=== PATIENT | female | born 1945 | race Caucasian/White ===

== ENCOUNTER 2020-02-08 13:08 | Inpatient (IN) | payer MEDICARE, OTHER, SELFPAY ==
[2020-02-08] VITALS (8 sets, daily range): BP systolic 121–152; BP diastolic 37–58; PULSE 62–72; RESP 13–18; TEMP 36.5–36.8; O2SAT 97–100; BMI 26.6
--- NOTE | ~2020-02-08 | US_ITS ---
EXAMINATION: US pelvic complete EXAM DATE: 02/08/2020 17:42 INDICATION: Vaginal bleeding. Postmenopausal. TECHNIQUE: Pelvic transabdominal and transvaginal sonogram was performed. There are multiple graysca le and Doppler images available for interpretation. There is no prior study for comparison. FINDINGS: Uterus measures 7.4 x 4.2 x 4.9 cm, possibly with 3 cm fibroid. Endometrial stripe measur es 5 mm, within normal limits. There is no free pelvic fluid. Right adnexa: The ovary is not identified. There is no adnexal mass. Left adnexa: The ovary is not identified. There is no adnexal mass. IMPRESSION: 1. Small heterogeneous myometrial region, possible 3 cm fibroid. Reviewed, dictated and finalized at location A.
[2020-02-08 13:46] LABS: Basophils Percent Auto 0.8 % (0.2-1.2); Eosinophils Absolute Auto 0.2 K/mm3 (0-0.3); Eosinophils Percent Auto 5.8 % (0-4.4); Hematocrit 24.9 % (37.0-47.0); Hemoglobin 8.3 g/dL (12.0-15.0); Immature Granulocyte Absolute 0.03 K/mm3 (0.00-0.031); Immature Granulocyte Percent A 0.8 % (0-0.5); Lymphocytes Absolute Auto 0.99 K/mm3 (0.9-3.2); Lymphocytes Percent Auto 25.1 % (18.3-44.2); Mean Corpuscular HGB Conc 33.3 g/dl (32-36); Mean Corpuscular Hemoglobin 31.4 pg (26-34); Mean Corpuscular Volume 94.3 fl (80-100); Mean Platelet Volume 10.5 fl (7.4-10.4); Monocytes Absolute Auto 0.6 K/mm3 (0.1-0.6); Monocytes Percent Auto 13.9 % (2.6-8.5); Neutrophils Absolute Auto 2.1 K/mm3 (1.3-6.7); Neutrophils Percent Auto 53.6 % (45.5-73.1); Platelet Count Result 97 k/mm3 (150-375); Red Blood Count 2.64 M/mm3 (4.2-5.4); Red Cell Distribution Width 14.6 % (11.5-14.5)
[2020-02-08 14:05] LABS: Add Urine Microscopic? YES; Appearance Urine Cloudy (Clear); Bacteria Urine 4+ /hpf; Bilirubin Urine Negative (Negative); Blood Urine 3+ (Negative); Glucose Urine UA Negative (Negative); Ketones Urine Negative (Negative); Leukocyte Esterase Ur Trace LEU/UL (Negative); Mucus Urine Rare /lpf; Nitrate Urine Negative (Negative); Protein Urine 1+ mg/dL (Negative); RBC Urine >75 /hpf (0-2); Specific Grav Ur 1.008 (1.001-1.035); Squamous Epithelial Cell Urine Rare /hpf (Few); Urobilinogen Urine Negative mg/dL (<2.0); WBC Urine 16-20 /hpf
[2020-02-08 14:08] LABS: Color Urine Dark Orange (Yellow)
[2020-02-08] MEDS: SODIUM CHLORIDE 0.9% IV 1,000 ML 999 ML IV CONT (14:26)
--- NOTE | 2020-02-08 14:47 | ED.FEMALEGU ---
HPI - Female Genitourinary General Chief complaint: Vaginal Bleeding Stated complaint: vag bleeding Time Seen by Provider: 02/08/20 13:57 Source: patient History of Present Illness HPI Narrative: Vaginal bleeding like menstrual cycle for the last 7 days. Currently complaining of increased tiredness. Patient denies similar symptoms, does not have an TOOL ROOM ATTENDANT, does not take blood thinners at home. Patient lives with her . Denying any pain. Related Data Home Medications Medication Instructions Recorded Confirmed Levemir FlexTouch U-100 Insuln 40 unit SUBCUT HS 05/26/19 05/26/19 buspirone 15 mg PO BID 05/26/19 05/26/19 furosemide 40 mg PO DAILY 05/26/19 05/26/19 iron 54 mg PO DAILY 05/26/19 05/26/19 nadolol 20 mg PO HS 05/26/19 05/26/19 sertraline 100 mg PO DAILY 05/26/19 05/26/19 Allergies Allergy/AdvReac Type Severity Reaction Status Date / Time No Known Allergies Allergy Verified 02/08/20 16:56 Review of Systems Review of Systems: Narrative: CONSTITUTIONAL: Denies fever, chills, or sweats. EYES: Denies visual changes, redness, or discharge. ENT: Denies rhinorrhea, congestion, sore throat, or otalgia. CARDIOVASCULAR: Denies chest pain, palpitations, or edema. RESPIRATORY: Denies cough or dyspnea. GASTROINTESTINAL: Denies abdominal pain, nausea, vomiting, or diarrhea. GENITOURINARY: Denies dysuria or hematuria. SKIN: Denies rash or itching. MUSCULOSKELETAL: Denies back pain, joint pain, or myalgia. NEUROLOGIC: Denies headache, numbness, or weakness. PSYCHIATRIC: Denies anxiety or depression. 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 Patient is a lifelong nonsmoker. She does not drink alcohol or use illicit substances. she lives with her of 25 years. She has 4 children who are living and relatively healthy. she had 2 children that were premature and shortly after . Smoking status: Never smoker Second hand tobacco smoke exposure: Yes Alcohol intake: never Substance use: never Gender identity (if verbalized by the patient): Female Spiritual care concerns: No Agree to blood products: Yes Exam Narrative: Exam Narrative: General appearance: Well-developed, well-nourished Skin: Normal color Head: Normocephalic, nontraumatic Eyes: Clear conjunctiva ENT: Oropharynx normal, ears normal, nose normal Neck: Supple, nontender Chest and respiratory: Airway patent, no respiratory distress, no accessory muscle use Heart: Regular rate/rhythm Abdomen: Soft, nontender, no organomegaly, quiet bowel sounds Vascular: Normal peripheral pulses, nor
--- NOTE | 2020-02-08 20:03 | PC.NURSE ---
Dr. Donald in room at this time.
--- NOTE | 2020-02-08 21:17 | WPDCN ---
Assessment and Plan Assessment and plan (1) Postmenopausal bleeding: Code(s): N95.0 - Postmenopausal bleeding Status: Acute Assessment and Plan: Patient with PMB x 1 week Hgb 8.3, decreased from 11.1 s/p pelvic US, ES 5mm, otherwise, mostly unremarkable on speculum exam, however, moderate bright red bleeding noted from cervical os s/p EMB and pap at bedside discussed further evaluation and possible management with hysteroscopy/D&C and possible MyoSure will admit patient to Med/Surg unit overnight and request add on procedure tomorrow if cleared by anesthesia all questions and concerns addressed patient agrees with plan (2) Anemia: Qualifiers: Anemia type: iron deficiency Iron deficiency anemia type: chronic blood loss Qualified Code(s): D50.0 - Iron deficiency anemia secondary to blood loss (chronic) Code(s): D64.9 - Anemia, unspecified Status: Acute (3) Diabetes mellitus: Code(s): E11.9 - Type 2 diabetes mellitus without complications Status: Chronic (4) Cirrhosis of liver: Code(s): K74.60 - Unspecified cirrhosis of liver Status: Chronic HPI Data of Consult Date/Time: 02/08/20 21:17 Primary Care Provider: Laila Cox, [employer]ER[employer]ODU[employer] PROCESSOR Consult Narrative Narrative: Patient is somewhat of a poor historian, possibly due to fatigue this evening. Therefore, history obtained by patient and . Shweta Russell is a 74 year old female who presented to the emergency department with complaints of postmenopausal bleeding. Patient reports onset of vaginal bleeding approximately 1 week ago and reports heavy bleeding since then similar to a menses. Patient has a history of hemorrhoids in the past and initially attributed bleeding to hemorrhoids, however she stated that they usually do not cause any bleeding. Patient also became increasingly more fatigued and presented to the emergency department this evening for evaluation. She denies any pelvic pain. Menarche was at later than usual ,however, during her teenage years and she reports regular menses until she experienced an early menopause approximately 40 years ago, which would indicate she went through menopause in her 30s. She denies any history of abnormal vaginal bleeding in the past. She currently does not have a machine biller has not seen a machine biller in several years. She is uncertain of her last pap smear. Denies any history of abnormal pap smears. She has a history of breast cancer approximately 6 years ago and does have mammograms every year. States that last colonoscopy was 3 years ago. She reports removal of polyps during this procedure. She reports family history of breast cancer in her mother. Denies any family history of ovarian, endometrial, or cervical cancers. Review of Systems Review of Systems: All systems reviewed & are unremarkable except as noted in HPI and below Constitutional: Constitutional: Reports as per HPI, Reports no additional constitutional complaints, Denies chills, Reports fatigue, Denies fever(s), Denies headache(s) and Denies night sweats Eyes: Eyes: Reports as per HPI and Reports no additional eye complaints ENT: Reports system reviewed and no additional complaints, except as documented, Reports as per HPI, Reports Normal hearing present and Denies headache(s) Cardiovascular: Cardiovascular: Reports as per HPI, Reports no additional cardiovascular complaints, Denies chest pain and Denies dyspnea Respiratory: Respiratory: Reports as per HPI, Reports no additional respiratory complaints, Denies cough and Denies dyspnea Gastrointestinal: Gastrointestinal: Reports as per HPI, Reports no additional gastrointestinal complaints, Denies abdominal pain, Denies change in bowel habits, Denies change in stool character, Denies nausea and Denies vomiting Genitourinary: Genitourinary: Reports no additional female genitourinary complaints, Reports as per HPI, Reports abnormal vaginal blee
[2020-02-08 22:40] LABS: INR 1.2; Prothrombin Time 15.3 Seconds (11.1-14.7)
[2020-02-08 22:41] LABS: Partial Thromboplastin Time 29.5 SECONDS (22.3-36.8)
[2020-02-08 22:42] LABS: Alanine Aminotransferase 21 U/L (4-35); Albumin Level 2.9 g/dL (3.5-5.1); Alkaline Phosphatase 86 U/L (38-126); Aspartate Amino Transferase 41 U/L (14-36); Blood Urea Nitrogen 24 mg/dL (7-17); Calcium 8.5 mg/dL (8.4-10.2); Carbon Dioxide 22 mmol/L (22-30); Chloride 110 mmol/L (98-107); Estimated CRCL calculation 38 ml/min; Estimated Glomerular Filt Rate 44; Glucose 85 mg/dL (65-105); Sodium 137 mmol/L (137-145)
[2020-02-08 22:46] LABS: Hemoglobin A1C 6.9 % (<5.7)
--- NOTE | 2020-02-08 23:15 | ADMGEN ---
This patient, Shweta Russell, was admitted to Medical Room 340-01. Patient/family oriented to hospital policies and general routines including ID bracelet, bed and alarms, visiting hours, pain management, procedures, bathroom and other care routines, personal items, smoking policy, room service/diet, and visiting hours. Valuables list has been completed. Information on how to activate the Rapid Response Team has been discussed. Patient/Family are encouraged to report perceived risks to care and to ask questions if they do not understand what they are told or what they should do.
[2020-02-08 23:37] LABS: Glucose Point of Care 77 (65-105)
[2020-02-09] VITALS (10 sets, daily range): BP systolic 120–149; BP diastolic 45–72; PULSE 65–70; RESP 10–18; TEMP 35.9–36.6; O2SAT 94–100
[2020-02-09] MEDS: SODIUM CHLORIDE 0.9% IV 1,000 ML 125 ML IV CONT ×2 (00:15→07:30)
--- NOTE | 2020-02-09 07:41 | PM.GYNPNOP ---
HL7 DEVELOPER - A/P Assessment and plan (1) Postmenopausal bleeding: Code(s): N95.0 - Postmenopausal bleeding Status: Acute Assessment and Plan: doing well this AM continue NPO Plan is to proceed with hysteroscopy, D&C with possible Myosure this afternoon Procedure, risks, and benefits discussed with patient, including, but not limited to bleeding, infection, injury to surrounding organs, need to convert to open abdominal surgery/laparotomy, risks of anesthesia, up to and including also discussed postoperative care and expectations Patient agrees with plan Consent forms signed All questions and concerns addressed Time Spent With Patient Time: Total time spent is greater than 50% in coordination of care (as documented) at patient's floor/unit and/or counseling patient: Time with patient: 15 - 25 minutes HL7 DEVELOPER- PN:Subj Post-Op Subjective Date/time seen: 02/09/20 07:41 Patient doing well this AM. No complaints. She is unaware of vaginal bleeding overnight and states that her pad was not changed overnight. Otherwise, she denies any headache, chest pain, or SOB. Exam Const: General: comfortable and no acute distress GI: Inspection: non-distended GI Palp: Yes Soft to palpation and No Tenderness to palpation present (GI) : Other: deferred to OR HL7 DEVELOPER - PN: Obj Data Vital Signs Vital Signs: Vital Signs - 24 hr 02/08/20 13:10 02/08/20 14:26 02/08/20 15:59 Temperature 36.8 C Pulse Rate 68 64 69 Respiratory Rate 16 14 14 Blood Pressure 136/37 L 130/50 L 136/54 L Pulse Oximetry 100 98 97 02/08/20 16:55 02/08/20 18:51 02/08/20 20:16 Temperature Pulse Rate 72 62 62 Respiratory Rate 18 14 17 Blood Pressure 143/55 H 135/58 L Pulse Oximetry 100 100 100 02/08/20 21:45 02/08/20 23:04 02/09/20 00:01 Temperature 36.5 C 36.7 C 36.5 C Pulse Rate 63 64 66 Respiratory Rate 13 17 12 Blood Pressure 121/50 L 152/58 H 133/50 L Pulse Oximetry 98 100 100 02/09/20 06:19 Temperature 36.6 C Pulse Rate 70 Respiratory Rate 14 Blood Pressure 128/56 L Pulse Oximetry 99 Intake/Output Intake/Output: Intake & Output 0802/07/20 02/08/20 02/09/20 23:59 23:59 23:59 23:59 Intake Total 1000 1000 Output Total 300 Balance 1000 700 Meds/Results Medications: Active Medications Generic Name Dose Route Start Last Admin Trade Name Freq PRN Reason Stop Dose Admin Dextrose 12.5 gm 02/08/20 22:05 Dextrose 50% Syringe IV PUSH PRN PRN Hypoglycemia Protocol Glucagon 1 mg 02/08/20 22:05 Glucagon For Inj IM PRN PRN Hypoglycemia Protocol Acetaminophen 1,000 mg in 100 mls @ 400 mls/hr 02/08/20 20:53 Ofirmev 1,000 Mg Ivpb IVPB 02/09/20 20:54 Q6H PRN Mild Pain (1-3) or Fever Sodium Chloride 1,000 mls @ 125 mls/hr 02/08/20 21:10 02/09/20 07:30 Normal Saline Iv IV CONT 125 mls/hr .Q8H TANNER Administration Dextrose 1,000 mls @ 100 mls/hr 02/08/20 22:05 Dextrose 5% 1,000 Ml IVPB PRN PRN Hypoglycemia Protocol Radiology Results: ITS Impressions Pelvis Ultrasound 02/08/20 17:46 IMPRESSION: 1. Small heterogeneous myometrial region, possible 3 cm fibroid. Labs CBC & Chem 7: 02/08/20 13:19 02/08/20 22:24 Labs: Laboratory Results - last 24 hr 02/08/20 02/08/20 02/08/20 13:19 13:52 22:24 WBC 4.0 L RBC 2.64 L Hgb 8.3 L Hct 24.9 L MCV 94.3 MCH 31.4 MCHC 33.3 RDW 14.6 H Plt Count 97 L MPV 10.5 H Immature Gran % (Auto) 0.8 H Neut % (Auto) 53.6 Lymph % (Auto) 25.1 [place] % (Auto) 13.9 H Eos % (Auto) 5.8 H Baso % (Auto) 0.8 Lymph # (Auto) 0.99 [place] # (Auto) 0.6 Eos # (Auto) 0.2 Baso # (Auto) 0.0 Abs Immat Gran (auto) 0.03 Absolute Neuts (auto) 2.1 Absolute Nucleated RBC 0.0 Nucleated RBC % 0.0 PT INR APTT Sodium Potassium Chloride Carbon Dioxide Anion Gap B
[2020-02-09 08:06] LABS: Glucose Point of Care 71 (65-105)
--- NOTE | 2020-02-09 08:39 | WPDANESEPP ---
Anes - Eval Pre Procedure Procedure: Operation Date: 02/09/20 13:30 Proposed Procedures p Hysteroscopy Dilation and Curettage - Selena Donald MD Date/Time: 02/09/20 08:39 Pre Op Diagnosis: Vaginal bleeding, anemia Patient Data Age: 74 Gender: F Height: 5 ft 8 in Weight: 79.4 kg Last Vital Signs Temp 98 F 02/09/20 06:19 Pulse 70 02/09/20 06:19 Resp 14 02/09/20 06:19 BP 128/56 L 02/09/20 06:19 Pulse Ox 99 02/09/20 06:19 Allergies Allergy/AdvReac Type Severity Reaction Status Date / Time No Known Allergies Allergy Verified 02/08/20 16:56 Home Medications Medication Instructions Recorded Confirmed Type Levemir FlexTouch U-100 Insuln 80 unit SUBCUT HS 05/26/19 02/09/20 History buspirone 15 mg PO BID 05/26/19 02/08/20 History furosemide 20 mg PO DAILY 05/26/19 02/08/20 History nadolol 20 mg PO HS 05/26/19 02/08/20 History sertraline 100 mg PO DAILY 05/26/19 02/08/20 History dulaglutide [Trulicity] See Protocol SUBCUT AC 02/08/20 02/09/20 History insulin aspart U-100 [Novolog 5 unit SUBCUT TID 02/08/20 02/09/20 History Flexpen U-100 Insulin] insulin degludec [Tresiba 84 unit SUBCUT HS 02/08/20 02/09/20 History FlexTouch U-200] spironolactone 50 mg PO DAILY 02/08/20 02/09/20 History Laboratory Tests 02/08/20 02/08/20 02/08/20 13:19 13:52 21:08 WBC 4.0 K/mm3 L K/mm3 (4.5-10.0) RBC 2.64 M/mm3 L M/mm3 (4.2-5.4) Hgb 8.3 g/dL L g/dL (12.0-15.0) Hct 24.9 % L % (37.0-47.0) MCV 94.3 fl fl (80-100) MCH 31.4 pg pg (26-34) MCHC 33.3 g/dl g/dl (32-36) RDW 14.6 % H % (11.5-14.5) Plt Count 97 k/mm3 L k/mm3 (150-375) MPV 10.5 fl H fl (7.4-10.4) Immature Gran % (Auto) 0.8 % H % (0-0.5) Neut % (Auto) 53.6 % % (45.5-73.1) Lymph % (Auto) 25.1 % % (18.3-44.2) [place] % (Auto) 13.9 % H % (2.6-8.5) Eos % (Auto) 5.8 % H % (0-4.4) Baso % (Auto) 0.8 % % (0.2-1.2) Lymph # (Auto) 0.99 K/mm3 K/mm3 (0.9-3.2) [place] # (Auto) 0.6 K/mm3 K/mm3 (0.1-0.6) Eos # (Auto) 0.2 K/mm3 K/mm3 (0-0.3) Baso # (Auto) 0.0 K/mm3 K/mm3 (0.0-0.1) Abs Immat Gran (auto) 0.03 K/mm3 K/mm3 (0.00-0.031) Absolute Neuts (auto) 2.1 K/mm3 K/mm3 (1.3-6.7) Absolute Nucleated RBC 0.0 K/mm3 K/mm3 (0.0-0.012) Nucleated RBC % 0.0 % % (0.0-0.2) PT INR APTT Sodium Potassium Chloride Carbon Dioxide Anion Gap BUN Creatinine Estim Creat Clear Calc Estimated GFR Glucose POC Capillary Glucose Hemoglobin A1c Calcium Total Bilirubin AST ALT Alkaline Phosphatase Total Protein Albumin Urine Color Dark orange H (Yellow) Urine Appearance Cloudy H (Clear) Urine pH 6.0 (5.0-9.0) Ur Specific [place] 1.008 (1.001-1.035) Urine Protein 1+ mg/dL H mg/dL (Negative) Urine Glucose (UA) Negative mg/dL mg/dL (Negative) Urine Ketones Negative mg/dL mg/dL (Negative) Ur Blood (Man) 3+ H (Negative) Urine Nitrate Negative (Negative) Urine Bilirubin Negative (Negative) Urine Urobilinogen Negative mg/dL mg/dL (<2.0) Leukocyte Esterase Rfl Trace CHAY/UL H CHAY/UL (Negative) Urine RBC >75 /hpf H /hpf (0-2) Urine WBC 16-20 /hpf H /hpf Ur Squamous Epith Cells Rare /hpf /hpf (Few) Urine Bacteria 4+ /hpf H /hpf Hyaline Casts 3-4 /lpf H /lpf (None) Urine Mucus Rare /lpf /lpf Pap Smear Pending Blood Type
--- NOTE | 2020-02-09 11:46 | PC.NURSE ---
Patient to pre-op per stretcher. Report to CLAUDIO Dominguez.
[2020-02-09 12:00] LABS: Glucose Point of Care 65 (65-105)
[2020-02-09] MEDS: LACTATED RINGERS 1,000 ML 30 ML IV CONT (12:00)
[2020-02-09] MEDS: DEXTROSE 50% 25 GM/50 ML SYRINGE IV PUSH (12:10)
--- NOTE | 2020-02-09 12:21 | WPDANESEFPP ---
Anes - Eval Final PreProcedure Day of Procedure 02/09/20 12:21 Patient weight: overweight Heart: regular rate and rhythm Lungs: clear to auscultation and decreased breath sounds Airway: Mallampati scale class II and special considerations poor extension Neurological: alert and oriented Last oral intake: >/= 8 hours ASA classification: IV Emergent: no Anesthetic plan: proceed Anesthesia type and monitoring: general GIVS and standard monitoring Informed Consent: The patient's anesthetic plan and its attendant risks and benefits were discussed with the patient/family/POA. Questions were solicited and answers provided to the satisfaction of the patient/family/POA.
--- NOTE | 2020-02-09 12:32 | WPDANESEFPP ---
Anes - Eval Final PreProcedure Day of Procedure 02/09/20 12:32 Patient weight: overweight Heart: regular rate and rhythm Lungs: clear to auscultation Airway: Mallampati scale class II Neurological: alert and oriented Last oral intake: >/= 8 hours ASA classification: IV Emergent: no Anesthetic plan: proceed Anesthesia type and monitoring: general GIVS and standard monitoring Informed Consent: The patient's anesthetic plan and its attendant risks and benefits were discussed with the patient/family/POA. Questions were solicited and answers provided to the satisfaction of the patient/family/POA.
--- NOTE | 2020-02-09 13:22 | PM.PROC ---
Procedure Note - Detailed Date of procedure: 02/09/20 Pre-op diagnosis: Vaginal bleeding, anemia Postmenopausal bleeding Post-op diagnosis: same Procedure performed: Hysteroscopy, dilation and curettage Description of procedure: The patient was taken to the operating room where she self-transferred to operating room table. The patient was placed in dorsal supine position. Anesthesia was administered and found to be adequate. Patient was repositioned in the dorsal lithotomy position with the use of Vaughn stirrups. She was prepped and draped in the usual sterile fashion. A red rubber catheter was used to drain the bladder for 100 cc of cloudy urine. A bivalve speculum was inserted into the vagina. The cervix was well visualized. A scant amount of old blood was noted in the posterior cul-de-sac. The rest of the vagina and cervix appeared to be grossly normal. The anterior lip of cervix was grasped with single-tooth tenaculum. A paracervical block was performed with a total of 10 cc of 1% lidocaine. 5 cc of lidocaine was administered on either side. The cervix was serially dilated to accommodate a hysteroscope. Hysteroscope was introduced into the endometrial cavity. On inspection, a moderate amount of blood clots were noted. Bilateral tubal ostia were visualized. No active bleeding was seen. No other intracavitary lesions were visualized. Pictures were taken. The hysteroscope was removed. A medium-size rigid curette was introduced into the endometrial cavity. All quadrants of the cavity were explored and a moderate amount of tissue and clots were removed. Specimen was prepared to be sent to pathology for analysis. The hysteroscope was reintroduced into endometrial cavity. Cavity appeared clean and atrophic. No further clots or lesions were visualized. Pictures were taken. The procedure was deemed complete. The hysteroscope was removed. Tenaculum was removed from the anterior lip of the cervix. No bleeding from tenaculum puncture sites was seen. The vagina was cleansed and dried. Speculum was removed. The remainder the patient was cleansed and dried. She was taken out of the dorsal lithotomy position and awakened from anesthesia without difficulty. She was transferred to recovery room stable condition. All sponge and instrument counts were correct at the end of the procedure. Anesthesia: MAC Surgeon: Selena Donald MD Servicen[employer] Administrator Developer: None Estimated blood loss (mL): 5 IV fluids (mL): 700 Urine output (mL): 100 Drains: No Packing: No Pathology: yes (endometrial curettings) Complications: No immediate complications Condition: stable Disposition: floor Findings: Intraoperative findings: moderate amount of blood clots visualized in the endometrial cavity, after curettage, cavity appeared clean and atrophic Hysteroscopic fluid: 900cc in/800cc out
[2020-02-09 13:47] LABS: Glucose Point of Care 127 (65-105)
--- NOTE | 2020-02-09 14:22 | PC.NURSE ---
Patient returned from PACU per stretcher. Report received from CLAUDIO Rodas. Spouse at bedside.
--- NOTE | 2020-03-06 10:57 | PM.DS ---
DS: Admitting Diagnosis Admitting Diagnosis Admitting Diagnosis: Vaginal bleeding, anemia DS: Summary Time Spent with Patient Time attestation: Total time spent providing and/or coordinating discharge services: DS: Data Data Completed and Pending Completed studies during hospitalization: Pending at discharge 02/09/20 13:03 Surgical [PTH] Routine Discharge Plan Discharge Attending physician on discharge: Selena Donald Consulting providers: Gray Mendoza Discharging Clinician: Selena Donald Anticipated Discharge Date/Time: 02/09/20 17:00 Patient Disposition: Home, Self-Care Activity: as tolerated Diet: diabetic Discharge Instructions: Call office [phone] to schedule postoperative visit in 2 weeks. Call office or go to Emergency Department for severe headache, chest pain, shortness of breath, nausea, vomiting, or heavy vaginal bleeding > 2 pads per hour Patient Instructions: Antibiotic Form, Pain Management (DC), Weakness (DC), Anemia (DC), Dilation and Curettage (DC), Hysteroscopy (DC) Stand Alone Forms: General Discharge Information Follow-up/Referrals: Selena Donald MD [Physician] - (Call office to schedule a postoperative visit in 2 weeks.) Discharge Medications: Continued sertraline 100 mg tablet 100 mg PO DAILY RF: 0 nadolol 20 mg tablet 20 mg PO HS RF: 0 buspirone 15 mg tablet 15 mg PO BID RF: 0 spironolactone 50 mg tablet 50 mg PO DAILY RF: 0 insulin aspart U-100 [Novolog Flexpen U-100 Insulin] 100 unit/mL (3 mL) insulin pen 5 unit SUBCUT TID RF: 0 Trulicity 0.75 mg/0.5 mL pen injector See Protocol mg SUBCUT AC RF: 0 No Action furosemide 20 mg tablet 20 mg PO QAM RF: 0 ferrous sulfate, dried 160 mg (50 mg iron) tablet extended release 160 mg PO DAILY RF: 0 ergocalciferol (vitamin D2) 1,250 mcg (50,000 unit) capsule 1,250 mcg PO WEEKLY RF: 0 Tresiba FlexTouch U-100 100 unit/mL (3 mL) insulin pen 10 unit SUB-Q DAILY RF: 0 exenatide microspheres 2 mg suspension,extended rel recon SUB-Q RF: 0 Date of admission: 02/08/20 20:53 Primary Care Provider: TamirLaila Admitting Provider: Selena Donald Discharge Date/Time: 02/09/20 15:52 Attending physician on admission: Selena Donald Condition: Stable
== END 2020-02-09 15:52 | disposition home or self-care (01) | DRG 745 ==
LOC: ANHED 21:12 → ANH3MED 22:15
PROVIDERS: General Practice; Admitting Provider Student in an Organized Health Care Education/Training Program; Emergency Provider Emergency Medicine; PCP Nurse Practitioner Adult Health; Visit Provider Student in an Organized Health Care Education/Training Program
PROC: 0U5B8ZZ Destruction of Endometrium, Via Natural or Artificial Opening Endoscopic (ICD-10-PCS; CPT 58563; principal; 2020-02-09 13:30)
DX: N95.0 Postmenopausal bleeding (principal); D50.0 Iron deficiency anemia secondary to blood loss (chronic); E11.9 Type 2 diabetes mellitus without complications; K74.60 Unspecified cirrhosis of liver; F41.8 Other specified anxiety disorders; M19.90 Unspecified osteoarthritis, unspecified site; K76.0 Fatty (change of) liver, not elsewhere classified; J30.1 Allergic rhinitis due to pollen; Z96.643 Presence of artificial hip joint, bilateral; Z85.3 Personal history of malignant neoplasm of breast; Z85.72 Personal history of non-Hodgkin lymphomas; Z90.49 Acquired absence of other specified parts of digestive tract
CPT/HCPCS: 36415; 76856; 80053; 81001; 83036; 85025; 85610; 85730; 86850; 86900; 86901; 87077; 87086; 87088; 87186; 88142; 88305; 96360; 96361; 99285; A9270; J2704; J3010; J7030; J7120

== ENCOUNTER 2020-11-02 03:35 | Inpatient (IN) | payer MEDICARE, OTHER, SELFPAY ==
[2020-11-02] VITALS (52 sets, daily range): BP systolic 92–138; BP diastolic 37–80; PULSE 63–97; RESP 14–25; TEMP 36.3–36.9; O2SAT 94–100; BMI 30.8
--- NOTE | 2020-11-02 | ECHO_ITS ---
Patient Info Name: Shweta Russell Age: 75 years : 1945 Gender: Female Ht: 68 in Wt: 202 lbs BSA: 2.12 m2 BP: 117 / 44 mmHg Heart Rhythm: Sinus Rhythm Technical Quality: Fair Exam Date: 11/02/2020 1:16 PM Exam Location: [facility] Pulmonary Patient Status: Inpatient Admit Date: 11/02/2020 Staff Ordering Physician: Faustino Gaona MD Ceramics Teacher: Amairani Leigh RDCS Attending Provider: Elo Krishnan MD Referring Physician: Jimenez OG; Exam Type: CA echo dop color flow w con Study Info Indications J81.0 - Acute pulmonary edema J81.1 - Chronic pulmonary edema Complete two-dimensional, color flow and Doppler transthoracic echocardiogram is performed with contrast to opacify the left ventricle and to improve the deliniation of the left ventricle endocardial borders. Contrast/Agitated Saline Contrast/Ag. Saline: Definity Amount: 2.00 ml Administered By: Aurelia Chu RN Existing IV Access: Yes IV Access Condition: patent with no signs of infiltration Summary 1. Left ventricular systolic function is hyperdynamic, estimated at >70%. 2. There is mildly increased left ventricular wall thickness. 3. The left ventricular diastolic function is grade I diastolic dysfunction. 4. Left ventricular chamber dimension is mildly enlarged. 5. There is no aortic valve stenosis. 6. There is trace mitral valve regurgitation. 7. There is trace tricuspid valve regurgitation. 8. No pulmonary hypertension, estimated pulmonary arterial systolic pressure is 34 mmHg. 9. Echo-free space consistent with epicardial fat pad. 10. Left pleural effusion and ascites is noted. 11. Normal inferior vena cava with >50% collapse upon inspiration consistent with normal right atrial pressure, 5 mmHg. Left Ventricle Left ventricular chamber dimension is mildly enlarged. Left ventricular systolic function is hyperdynamic, estimated at >70%. There is mildly increased left ventricular wall thickness. The left ventricular diastolic function is grade I diastolic dysfunction. Right Ventricle Right ventricular chamber dimension is normal. Right ventricular systolic function is normal. Left Atria Left atrial chamber dimension is mildly enlarged. Right Atria Right atrial chamber dimension is normal. Aortic Valve The aortic valve is not well visualized. There is no aortic valve stenosis. There is no aortic valve regurgitation. Pulmonic Valve The pulmonic valve is not well visualized. Mitral Valve The mitral valve has thickened leaflets. There is trace mitral valve regurgitation. The mitral valve annulus is mildly calcified. Tricuspid Valve The tricuspid valve leaflets are normal. There is trace tricuspid valve regurgitation. No pulmonary hypertension, estimated pulmonary arterial systolic pressure is 34 mmHg. Pericardium/Pleural Echo-free space consistent with epicardial fat pad. Left pleural effusion and ascites is noted. Inferior Vena Cava Normal inferior vena cava with >50% collapse upon inspiration consistent with normal right atrial pressure, 5 mmHg. Aorta The aortic root size at the sinus of Valsalva is normal. Left Ventricular Outflow Tract Name Value Normal LVOT 2D
--- NOTE | ~2020-11-02 | XR_ITS ---
EXAMINATION: XR chest 1V portable DATE: 11/02/2020 03:59 INDICATION: Shortness of breath. TECHNIQUE: A single frontal view of the chest was obtained. COMPARISON: Chest single view 05/27/2019 FINDINGS: There is a small right pleural effusion. There are perihilar airspace opacities bilaterally . There is a diffuse interstitial pattern in the lungs. No pneumothorax. Cardiomegaly is noted. There are changes of anterior fusion procedure in cervical spine. IMPRESSION: 1. Diffuse lung disease, consistent with mild pulmonary edema versus atypical pneumonia. 2. Small right pleural effusion. 3. Cardiomegaly. Reviewed, dictated and finalized at location A. IMPRESSION: 1. Diffuse lung disease, consistent with mild pulmonary edema versus atypical p neumonia. 2. Small right pleural effusion. 3. Cardiomegaly.
--- NOTE | ~2020-11-02 | CT_ITS ---
EXAMINATION: CTA chest PE protocol DATE: 11/02/2020 06:39 INDICATION: Shortness of breath. TECHNIQUE: Computed tomography angiography (CTA) of the chest was performed with 100 mL Omnipaque-350 intravenous contrast timed to evaluate the pulmonary arteries. Coronal maximum intensity projection 3D-reconstructions were created by the technologist. Automated exposure control and iterative reconst ruction technique were employed. The dose-length product was 874.89 mGy-cm. COMPARISON: Chest CT 09/04/2016 FINDINGS: The lungs demonstrated diffuse smooth septal thickening. There are patchy airspace and grou ndglass opacities in all lobes. A calcified left lung nodule and calcified left hilar lymph nodes are consistent with old granulomatous disease. There are small pleural effusions, left worse than right. There is no pulmonary embolus. The liver demonstrates surface nodularity, consistent with cirrhosis. There is splenomegaly measuring at least 18 cm. There is a large limb of ascites. Paraesophageal clara ices are noted. There is gastrohepatic lymphadenopathy. There is a 1.9 cm mass in left adrenal gland measuring soft tissue attenuation. There are bridging endplate osteophytes at multiple levels in the spine, consistent with diffuse idiopathic skeletal hyperostosis (DISH). There is mild thoracic spondy losis. IMPRESSION: 1. No pulmonary embolus. 2. Diffuse lung disease, likely moderate pulmonary edema without or with superimposed pneumonia. 3. Small pleural effusions. 4. Cirrhosis of the liver with portal venous hypertension. 5. Large volume of ascites. 6. Worsened gastrohepatic lymphadenopathy, which may be reactive lymphadenopathy or metastatic diseas e. 7. Worsened left adrenal mass, which may be an adenoma or metastatic disease. Consider abdomen and pe lvis CT without and with contrast after paracentesis. Reviewed, dictated and finalized at location A. IMPRESSION: 1. No pulmonary embolus. 2. Diffuse lung disease, likely moderate pulmonary edema without or with superi mposed pneumonia. 3. Small pleural effusions. 4. Cirrhosis of the liver with portal venous hypertension. 5. Large volume of ascites. 6. Worsened gastrohepatic lymphadenopathy, which may be reactive lymphadenopath y or metastatic disease. 7. Worsened left adrenal mass, which may be an adenoma or metastatic disease. C onsider abdomen and pelvis CT without and with contrast after paracentesis.
--- NOTE | ~2020-11-02 | US_ITS ---
EXAMINATION: US paracentesis abd w/image DATE: 11/03/2020 15:17 INDICATION: Ascites. TECHNIQUE: The procedure and its risks, benefits, and alternatives were discussed with the patient. P otential risks discussed included bleeding and infection. The skin was prepped and draped in sterile fashion. 1% lidocaine was used for local anesthesia. Under ultrasound guidance, a 5 Fr catheter with trochar was advanced into the ascites in the right lower quadrant. Fluid was aspirated. The catheter was removed, and a dressing was applied. There were no immediate complications. FINDINGS: Ultrasound images demonstrate ascites and the catheter within the fluid. IMPRESSION: 1. Successful ultrasound-guided paracentesis yielding 5000 mL of cloudy, yellow fluid. Reviewed, dictated and finalized at location A. IMPRESSION: 1. Successful ultrasound-guided paracentesis yielding 5000 mL of cloudy, yello w fluid.
--- NOTE | 2020-11-02 03:28 | ECG_ITS ---
Measurements Intervals [place] Rate: 85 P: 57 [place]: 161 QRS: 16 QRSD: 96 T: 31 QT: 347 QTc: 413 Interpretive Statements SINUS RHYTHM WITH SINUS ARRHYTHMIA CONSIDER INFERIOR INFARCT, AGE INDETERMINATE NONSPECIFIC ST & T-WAVE ABNORMALITY- ANTEROLAT/HIGH LAT LEADS BASELINE ARTIFACT- V1 ABNORMAL ECG Electronically Signed On 11-02-2020 7:17:01 CDT by Tavo Lujan D.O.
[2020-11-02 03:58] LABS: Basophils Percent Auto 0.3 % (0.2-1.2); Eosinophils Absolute Auto 0.1 K/mm3 (0-0.3); Eosinophils Percent Auto 0.9 % (0-4.4); Hematocrit 30.2 % (37.0-47.0); Hemoglobin 9.8 g/dL (12.0-15.0); Immature Granulocyte Absolute 0.05 K/mm3 (0.00-0.031); Immature Granulocyte Percent A 0.5 % (0-0.5); Lymphocytes Absolute Auto 0.68 K/mm3 (0.9-3.2); Lymphocytes Percent Auto 6.5 % (18.3-44.2); Mean Corpuscular HGB Conc 32.5 g/dl (32-36); Mean Corpuscular Hemoglobin 30.5 pg (26-34); Mean Corpuscular Volume 94.1 fl (80-100); Mean Platelet Volume 9.8 fl (7.4-10.4); Monocytes Absolute Auto 1.1 K/mm3 (0.1-0.6); Monocytes Percent Auto 10.7 % (2.6-8.5); Neutrophils Absolute Auto 8.5 K/mm3 (1.3-6.7); Neutrophils Percent Auto 81.1 % (45.5-73.1); Platelet Count Result 164 k/mm3 (150-375); Red Blood Count 3.21 M/mm3 (4.2-5.4); Red Cell Distribution Width 14.5 % (11.5-14.5); White Blood Count 10.4 K/mm3 (4.5-10.0)
[2020-11-02 04:10] LABS: Anion Gap 5 mmol/L (8-16); Blood Urea Nitrogen 28 mg/dL (7-17); Calcium 8.2 mg/dL (8.4-10.2); Carbon Dioxide 25 mmol/L (22-30); Chloride 106 mmol/L (98-107); Estimated CRCL calculation 29 ml/min; Estimated Glomerular Filt Rate 32; Glucose 198 mg/dL (65-105); Potassium 3.8 mmol/L (3.4-5.0); Sodium 136 mmol/L (137-145)
--- NOTE | 2020-11-02 04:19 | PC.NURSE ---
Called lab to add on blood specimen
--- NOTE | 2020-11-02 04:23 | ED.SOB ---
HPI - SOB/Dyspnea General Chief Complaint: Shortness of Breath/Dyspnea Stated Complaint: difficulty breathing Time Seen by Provider: 11/02/20 04:08 Source: patient Mode of arrival: EMS Limitations: clinical condition History of Present Illness HPI Narrative: Patient is a 75-year-old female brought in by EMS in respiratory distress. Per EMS patient was short of breath and placed on BiPAP. Patient upon arrival was on BiPAP. Patient states that her shortness of breath started tonight and gradually worsened. Patient states that she uses home oxygen at night occasionally but does not know why. Patient denies any chest pain, abdominal pain, nausea, vomiting, fever or chills. Related Data Home Medications Medication Instructions Recorded Confirmed buspirone 15 mg PO BID 05/26/19 02/08/20 nadolol 20 mg PO HS 05/26/19 02/08/20 sertraline 100 mg PO DAILY 05/26/19 02/08/20 Trulicity See Protocol SUBCUT AC 02/08/20 02/09/20 insulin aspart U-100 [Novolog 5 unit SUBCUT TID 02/08/20 02/09/20 Flexpen U-100 Insulin] spironolactone 50 mg PO DAILY 02/08/20 02/09/20 ergocalciferol (vitamin D2) 1,250 1,250 mcg PO WEEKLY 02/29/20 mcg (50,000 unit) capsule exenatide microspheres 2 mg mg SUB-Q 02/29/20 subcutaneous extended release suspension ferrous sulfate, dried 160 mg (50 160 mg PO DAILY 02/29/20 mg iron) tablet,extended release furosemide 20 mg tablet 20 mg PO QAM 02/29/20 insulin degludec 100 unit/mL (3 10 unit SUB-Q DAILY 02/29/20 mL) subcutaneous pen Allergies Allergy/AdvReac Type Severity Reaction Status Date / Time No Known Allergies Allergy Verified 11/02/20 03:39 Review of Systems Review of Systems: All systems reviewed & are unremarkable except as noted in HPI and below Constitutional: Constitutional: Denies body ache(s), Denies chills, Denies excessive sweating, Denies fatigue, Denies fever(s), Denies headache(s), Denies lethargy, Denies malaise, Denies weakness and Denies weight loss Eyes: Eyes: Denies blurry vision, Denies change in vision and Denies loss of vision ENT: Denies dizziness, Denies ear discharge, Denies headache(s), Denies lip swelling, Denies epistaxis, Denies nasal congestion, Denies neck pain, Denies throat swelling and Denies tongue swelling Cardiovascular: Cardiovascular: Denies chest pain, Denies chest pain at rest, Denies chest pain with activity, Denies diaphoresis, Denies rapid heart rate, Denies edema, Denies irregular heart rhythm, Denies lightheadedness, Denies palpitations, Denies dyspnea and Denies dyspnea on exertion Respiratory: Respiratory: Denies chest congestion, Denies cough and Denies hemoptysis Gastrointestinal: Gastrointestinal: Denies abdominal pain, Denies melena, Denies hematochezia, Denies diarrhea, Denies nausea, Denies vomiting and Denies hematemesis Musculoskeletal: Musculoskeletal: Denies abnormal gait, Denies deformity, Denies joint swelling, Denies limited range of motion, Denies neck pain and Denies numbness Neurologic: Denies Abnormal speech present, Denies abnormal gait, Denies confusion, Denies dizziness, Denies headache(s), Denies focal weakness, Denies loss of vision, Denies numbness, Denies Other visual disturbances, Denies Sensory deficit (Neuro) and Denies weakness Psychiatric: Psychiatric: Denies confusion, Denies depression, Denies auditory hallucinations, Denies homicidal ideation and Denies suicidal ideation Endocrine: Endocrine: Denies cold intolerance, Denies excessive sweating, Denies fatigue, Denies heat intolerance and Denies palpitations Hematologic/Lymphatic: Hematologic/Lymphatic: Denies easy bleeding and Denies easy bruising Allergic/Immunologic: Allergic/Immunologic: Denies lip swelling, Denies throat swelling and Denies tongue swelling [facility] Past Medical History Medical History Anemia Anemia Anxiety Arthritis 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
[2020-11-02 04:28] LABS: INR 1.3; Prothrombin Time 16.7 Seconds (11.1-14.7)
[2020-11-02 04:52] LABS: NT Pro B Type Natriuretic Pept 2710 pg/mL (5-100); Troponin I 0.051 ng/mL (0.000-0.034)
--- NOTE | 2020-11-02 05:34 | PC.NURSE ---
Clarified Lasix dose ordered IVP with ED MD Poole d/t pt's current and trending blood pressures. Verbal order given by provider for this RN to HOLD medication at this time. will continue to monitor
[2020-11-02 05:40] LABS: D Dimer 19.41 ug/mL (<0.48)
--- NOTE | 2020-11-02 06:47 | PC.NURSE ---
pt back from ct scan. placed back on bipap. will continue to monitor.
[2020-11-02] MEDS: ASPIRIN 325 MG ENTERIC TABLET PO (07:20)
[2020-11-02 08:31] LABS: Lactic Acid Reflex 1.3 mmol/L (0.7-2.1)
--- NOTE | 2020-11-02 08:35 | PC.NURSE ---
called down to lab at 0730 to add on another order for the second set of blood cultures due to scanning error.
[2020-11-02 09:08] LABS: Troponin I 0.229 ng/mL (0.000-0.034)
--- NOTE | 2020-11-02 10:25 | ADMGEN ---
This patient, Shweta Russell, was admitted to IMU Room 201-01 @ 0955. Patient/spouse oriented to hospital policies and general routines including ID bracelet, bed and alarms, visiting hours, pain management, procedures, bathroom and other care routines, personal items, smoking policy, room service/diet, and visiting hours. Information on how to activate the Rapid Response Team has been discussed. Patient/spouse encouraged to report perceived risks to care and to ask questions if they do not understand what they are told or what they should do.
--- NOTE | 2020-11-02 11:23 | PM.CNCAR ---
Assessment and Plan Additional Plan -elevated troponins -pulmonary edema -large ascites -recurrent pleural effusion -acute on chronic kidney injury -in regards to elevated troponins, demand ischemia suspected. No evidence of ischemia on EKG. Patient denies chest pain. Will obtain echocardiogram to assess cardiac structure and function. Patient does have a history of valve disease she was told it was mild. Discontinue Lovenox. -in regards to pulmonary edema start Lasix 20 mg IV b.i.d.. Monitor renal function. -regards to large ascites, recommended drainage and paracentesis. GI consultation is warranted as well. -patient does have recurrent pleural effusions and she had drained in the past 5 times. Last time was about 1 and half years ago. History of Present Illness History of Present Illness Consult date/time: Date of service: 11/02/20 11:23 Requesting physician: Elo Krishnan MD Consult reason: Other (Elevated troponin) Reason For Visit: acute respiratory failure,pulmonary edema,ascites Narrative: This is 75-year-old female a past medical history of diabetes, cirrhosis thought to be related to MUHAMMAD/alcoholism, previous history of pleural effusion status post drainage in the past, anxiety, non-Hodgkin lymphoma status post chemotherapy 5 years ago, history of breast cancer status post partial mastectomy,. Patient presents to the hospital with shortness of breath and on arrival to the emergency room was placed on BiPAP. She went to sleep last night and then after 1 hour she woke up with shortness of breath. She does have oxygen that she uses at home as needed and she use the oxygen without any help. EMS was called. She was placed on BiPAP machine with improvement of symptoms. Patient endorses progressive swelling of the abdomen. She does have some lower limb edema as well and she has an ulcer on the left leg. Denies chest pain, syncope. She admits dizziness on standing up from sitting position. She also admits to dry cough recently. She received the COVID vaccine. Hemoglobin 9.8, white cell count 10.6 K, creatinine 1.6 with a baseline 1.1. INR 1.3 D-dimer is elevated at 19. Troponins 0.05, 0.229 CTA thorax ruled out pulmonary embolism and shows large abdominal ascites, pulmonary edema, worsening gastrohepatic lymphadenopathy and left adrenal mass concerning for adenoma or cancer. EKG reviewed analyze myself shows sinus rhythm and nonspecific ST changes. Chest x-ray reviewed analyze myself shows right pleural effusion and pulmonary vascular congestion. Review of Systems Constitutional: Constitutional: Denies chills, Reports fatigue, Denies fever(s), Reports malaise and Denies poor appetite Eyes: Eyes: Denies eye discharge, Denies loss of vision, Denies eye pain and Denies photophobia ENT: Denies dizziness, Denies epistaxis, Denies nasal congestion and Denies sore throat Cardiovascular: Cardiovascular: Denies chest pain, Denies syncope, Denies pedal edema, Reports leg edema, Denies palpitations, Reports dyspnea, Reports dyspnea on exertion and Denies orthopnea Respiratory: Respiratory: Denies cough, Reports dyspnea, Reports dyspnea on exertion and Denies wheezing Gastrointestinal: Gastrointestinal: Denies abdominal pain, Denies diarrhea, Denies nausea, Denies vomiting and Reports other (Abdominal distension) Genitourinary: Genitourinary: Denies hematuria, Denies genital lesions and Denies dysuria Musculoskeletal: Musculoskeletal: Denies arthralgias, Denies joint swelling and Denies numbness Integumentary/Breasts: Skin/Breast: Denies pruritus and Denies rash Neurologic: Denies dizziness, Denies syncope, Denies loss of vision and Denies numbness Psychiatric: Psychiatric: Denies anxiety and Denies depression Endocrine: Endocrine: Denies cold intolerance, Denies heat intolerance and Denies palpitations Hematologic/Lymphatic: Hematologic/Lymphatic: Denies easy bleeding and Denies easy bruising Allergic/Immunologic:
[2020-11-02 12:14] LABS: Glucose Point of Care 188 (65-105)
[2020-11-02 12:42] LABS: Troponin I 0.221 ng/mL (0.000-0.034)
[2020-11-02] MEDS: PERFLUTREN LIPID MICROSPHERES 1.5 ML VIAL DILUTED TO 10 ML TOTAL VOLUME IV PUSH (13:48)
[2020-11-02] MEDS: SILVERGEL (ELTA) 45 ML 1 APPLIC TOPICAL (14:01)
[2020-11-02] MEDS: FUROSEMIDE INJ 40 MG/4 ML VIAL IV PUSH (14:02)
[2020-11-02 16:13] LABS: Glucose Point of Care 224 (65-105)
[2020-11-02] MEDS: INSULIN ASPART (*BKC) 100 UNITS/ML SUB-Q (17:07)
--- NOTE | 2020-11-02 17:16 | WPDGICN ---
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: Code(s): K75.81 - Nonalcoholic steatohepatitis (MUHAMMAD); K74.60 - Unspecified cirrhosis of liver Status: Acute Assessment and Plan: decompensated with ascites, will get also cmp tomorrow will order paracentesis, also send fluid to check for SBP but also cytology (noted lymphadenopathy, she had history of breast cancer and lymphoma)- will get also LDH and after paracentesis will need CT abd/pelvis (2) Ascites: Qualifiers: Ascites type: other type Qualified Code(s): R18.8 - Other ascites Code(s): R18.8 - Other ascites Status: Acute Assessment and Plan: paracentesis 2g na diet and will need follow up with her liver doctor (3) Abnormal CT of the abdomen: Code(s): R93.5 - Abnormal findings on diagnostic imaging of other abdominal regions, including retroperitoneum Status: Acute Assessment and Plan: CT scan after paracentesis to reassess abnormal enlarged lymph nodes (4) Acute respiratory failure: Qualifiers: Respiratory failure complication: unspecified whether with hypoxia or hypercapnia Qualified Code(s): J96.00 - Acute respiratory failure, unspecified whether with hypoxia or hypercapnia Code(s): J96.00 - Acute respiratory failure, unspecified whether with hypoxia or hypercapnia Status: Acute Assessment and Plan: improved with medical treatment, s/p diuretics cardiology on board (5) Pulmonary edema: Qualifiers: Chronicity: acute Qualified Code(s): J81.0 - Acute pulmonary edema Code(s): J81.1 - Chronic pulmonary edema Status: Acute Assessment and Plan: improved (6) Diabetes mellitus: Code(s): E11.9 - Type 2 diabetes mellitus without complications Status: Chronic (7) Recurrent pleural effusion on right: Code(s): J90 - Pleural effusion, not elsewhere classified Status: Acute Assessment and Plan: smaller size this time, thoracentesis ~ 1.5 year ago. GI Consult Note Consult date/time: 11/02/20 17:16 Reason for consult: muahmmad cirrhosis, ascites HPI: Shweta Russell is a 75 year old female with past medical history of diabetes, MUHAMMAD cirrhosis (patient says that is seeing liver doctor in [facility], also had paracentesis previously), history of pleural effusion status post drainage in the past, non-Hodgkin lymphoma status post chemotherapy 5 years ago, history of breast cancer status post partial mastectomy. She came here with acute shortness of breath, placed on BIPAP on arrival. Patient upon arrival was on BiPAP. Blood work revealed Hemoglobin 9.8, white cell count 10.6 K, creatinine 1.6 with a baseline 1.1, elevated BNP, INR 1.3, D-dimer is elevated at 19, troponins 0.05, 0.229 (did not get liver enzymes this time). Then had CT scan chest reviewed, no pulmonary embolus, diffuse lung disease, likely moderate pulmonary edema without or with superimposed pneumonia, small pleural effusions, cirrhosis of the liver with portal venous hypertension, large volume of ascites, worsened gastrohepatic lymphadenopathy, which may be reactive lymphadenopathy or metastatic disease, worsened left adrenal mass, which may be an adenoma or metastatic disease. She is breathing better, says that also noted increase abdominal girth gradually with leg edema. Review of Systems Constitutional: Constitutional: Denies chills Eyes: Eyes: Reports no additional eye complaints ENT: Reports system reviewed and no additional complaints, except as documented Cardiovascular: Cardiovascular: Reports leg edema Respiratory: Respiratory: Reports dyspnea on exertion Gastrointestinal: Gastrointestinal: Reports no additional gastrointestinal complaints Genitourinary: Genitourinary: Denies hematuria Musculoskeletal: Musculoskeletal: Reports no additional musculoskeletal complaints Integumentary/Breasts: Skin/Breast: Reports system r
--- NOTE | 2020-11-02 17:42 | PM.IMHP ---
H&P: HPI History of Present Illness Date/Time: 11/02/20 17:42 take patient is 75-year-old female with history of liver cirrhosis nonalcoholic patient has been seen [facility] no details available, patient is a poor stool somewhat history is collected from her and from chart patient presented emergency depart with complaint shortness of breath, and large ascites, upon arrival patient tropes were also elevated, patient is seen by Student Driving Instructor does not suspect acute coronary syndrome and continue to monitor and patient does not need anticoagulated as with history of liver cirrhosis, patient was seen by GI and ordered paracentesis diagnostic as well as therapeutic. Which is scheduled for tomorrow, will continue to monitor. 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 Patient is a lifelong nonsmoker. She does not drink alcohol or use illicit substances. she lives with her of 25 years. She has 4 children who are living and relatively healthy. she had 2 children that were premature and shortly after . Smoking status: Never smoker Second hand tobacco smoke exposure: Yes Alcohol intake: never Substance use: never Gender identity (if verbalized by the patient): Female Sexual Orientation (if Verbalized by the Patient): Straight or Heterosexual Spiritual care concerns: No Agree to blood products: Yes Meds Home Medications and Allergies Home Medications Medication Instructions Recorded Confirmed Type buspirone 15 mg PO BID 05/26/19 11/02/20 History nadolol 20 mg PO HS 05/26/19 11/02/20 History sertraline 100 mg PO DAILY 05/26/19 11/02/20 History insulin aspart U-100 [Novolog See Rx Instructions .ROUTE 02/08/20 11/02/20 History Flexpen U-100 Insulin] .COMPLEX PRN spironolactone 50 mg PO DAILY 02/08/20 11/02/20 History ergocalciferol (vitamin D2) 1,250 See Rx Instructions .ROUTE .COMPLEX 02/29/20 11/02/20 History mcg (50,000 unit) capsule ferrous sulfate, dried 160 mg (50 160 mg PO DAILY 02/29/20 11/02/20 History mg iron) tablet,extended release furosemide 20 mg tablet 40 mg PO QAM 02/29/20 11/02/20 History insuli
[2020-11-02 20:14] LABS: Glucose Point of Care 196 (65-105)
[2020-11-03] VITALS (20 sets, daily range): BP systolic 110–144; BP diastolic 36–65; PULSE 61–84; RESP 14–26; TEMP 35.7–37.1; O2SAT 91–99
[2020-11-03 05:28] LABS: Alanine Aminotransferase 16 U/L (4-35); Albumin Level 2.6 g/dL (3.5-5.1); Alkaline Phosphatase 83 U/L (38-126); Anion Gap 4 mmol/L (8-16); Aspartate Amino Transferase 40 U/L (14-36); Bilirubin,Total 0.9 mg/dL (0.2-1.3); Blood Urea Nitrogen 37 mg/dL (7-17); Calcium 8.6 mg/dL (8.4-10.2); Carbon Dioxide 26 mmol/L (22-30); Chloride 106 mmol/L (98-107); Estimated CRCL calculation 27 ml/min; Estimated Glomerular Filt Rate 24; Glucose 119 mg/dL (65-105); Lactate Dehydrogenase 328 U/L (313-618); Potassium 3.4 mmol/L (3.4-5.0); Sodium 136 mmol/L (137-145)
[2020-11-03 07:58] LABS: Glucose Point of Care 100 (65-105)
[2020-11-03 09:03] LABS: Magnesium 2.2 mg/dL (1.6-2.3)
[2020-11-03 09:10] LABS: Hematocrit 25.8 % (37.0-47.0); Hemoglobin 8.3 g/dL (12.0-15.0); Mean Corpuscular HGB Conc 32.2 g/dl (32-36); Mean Corpuscular Hemoglobin 30.5 pg (26-34); Mean Corpuscular Volume 94.9 fl (80-100); Mean Platelet Volume 10.5 fl (7.4-10.4); Platelet Count Result 110 k/mm3 (150-375); Red Blood Count 2.72 M/mm3 (4.2-5.4); Red Cell Distribution Width 14.6 % (11.5-14.5); White Blood Count 7.3 K/mm3 (4.5-10.0)
[2020-11-03] MEDS: PROPRANOLOL HCL 10 MG TABLET PO ×2 (09:12→20:52)
[2020-11-03] MEDS: FUROSEMIDE INJ 40 MG/4 ML VIAL IV PUSH (09:12)
[2020-11-03] MEDS: SILVERGEL (ELTA) 45 ML 1 APPLIC TOPICAL (09:12)
[2020-11-03 11:15] LABS: Glucose Point of Care 80 (65-105)
[2020-11-03 12:06] LABS: Glucose Point of Care 85 (65-105)
--- NOTE | 2020-11-03 13:15 | WPDGIPROGNO ---
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: Code(s): K75.81 - Nonalcoholic steatohepatitis (MUHAMMAD); K74.60 - Unspecified cirrhosis of liver Status: Acute Assessment and Plan: paracentesis pending (check cytology- history of lymphoma and noted enlarged lymph nodes, also cell count to check for SBP) no diuretics for now because worsening renal failure 2g na diet she will need follow up with her lithograph press operator as outpatient (2) Ascites: Qualifiers: Ascites type: other type Qualified Code(s): R18.8 - Other ascites Code(s): R18.8 - Other ascites Status: Acute Assessment and Plan: paracentesis will also give IV albumin today given renal failure (3) Abnormal CT of the abdomen: Code(s): R93.5 - Abnormal findings on diagnostic imaging of other abdominal regions, including retroperitoneum Status: Acute Assessment and Plan: when feasible recommend to get CT scan a/p given worrisome findings in recent CTA chest - LN and adrenal lesion (can not use IV contrast because renal failure) (4) Acute on chronic renal failure: Code(s): N17.9 - Acute kidney failure, unspecified; N18.9 - Chronic kidney disease, unspecified Status: Acute Assessment and Plan: iv albumin, avoid nephrotoxins continue to monitor (5) Pulmonary edema: Qualifiers: Chronicity: acute Qualified Code(s): J81.0 - Acute pulmonary edema Code(s): J81.1 - Chronic pulmonary edema Status: Acute Assessment and Plan: stable (6) Recurrent pleural effusion on right: Code(s): J90 - Pleural effusion, not elsewhere classified Status: Acute Assessment and Plan: small size this time (7) Diabetes mellitus: Code(s): E11.9 - Type 2 diabetes mellitus without complications Status: Chronic Subjective Date/time seen: 11/03/20 13:15 Interval history: no major findings, awaiting for paracentesis Review of Systems Review of Systems: All systems reviewed & are unremarkable except as noted in HPI and below Exam Const: General: ill appearing chronically Other: awake, alert HENMT: General nose exam: Normal nares present Eyes: General: appearance normal, both eyes and all related structures Neck: Neck: supple Resp: Auscultation: diminished lung sounds Cardio: Rate: regular rate GI: Inspection: distended GI Palp: No Tenderness to palpation present (GI) Percussion: Yes Fluid wave present Auscultation: normal bowel sounds Skin: General skin exam: normal color Neuro: Speech: normal speech Extrem: General: pedal edema (trace edema) bilaterally Psych: Mental Status: mental status grossly normal Objective Data Vital Signs Vital Signs: Vital Signs - 24 hr 11/02/20 14:00 11/02/20 16:00 11/02/20 16:30 Temperature 97.9 F Pulse Rate 66 66 64 Respiratory Rate 14 Blood Pressure 123/51 L Pulse Oximetry 97 97 11/02/20 18:00 11/02/20 19:00 11/02/20 20:00 Temperature 98 F Pulse Rate 63 65 65 Respiratory Rate 14 Blood Pressure 105/59 L Pulse Oximetry 97 97 11/02/20 21:52 11/02/20 22:00 11/02/20 22:30 Temperature Pulse Rate 65 97 Respiratory Rate 20 24 H Blood Pressure Pulse Oximetry 97 11/02/20 23:20 11/03/20 00:00 11/03/20 02:00 Temperature 98.3 F Pulse Rate 61 61 Respiratory Rate 15 Blood Pressure 110/64 Pulse Oximetry 99 99 11/03/20 03:52 11/03/20 04:00 11/03/20 06:00 Temperature 98.7 F Pulse Rate 69 71 Respiratory Rate 14 Blood Pressure 110/65 Pulse Oximetry 97 98 11/03/20 08:00 11/03/20 08:41 11/03/20 09:12 Temperature 97.1 F L Pulse Rate 66 68 71 Respiratory Rate 22 H Blood Pressure 138/53 L Pulse Oximetry 99 11/03/20 10:00 11/03/20 12:13 Temperature 96.7 F L Pulse Rate 68 67 Respiratory Rate 21 H Blood Pressure 127/48 L Pulse Oximetry 97 Intake/Output Intake/Output: Intake & Output
--- NOTE | 2020-11-03 13:37 | PM.IMPN ---
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: Code(s): K75.81 - Nonalcoholic steatohepatitis (MUHAMMAD); K74.60 - Unspecified cirrhosis of liver Status: Acute Assessment and Plan: 11/03/20 13:37 11/02 take patient is 75-year-old female with history of liver cirrhosis nonalcoholic patient has been seen camp program director at [facility] no details available, patient is a poor stool somewhat history is collected from her and from chart patient presented emergency depart with complaint shortness of breath, and large ascites, upon arrival patient tropes were also elevated, patient is seen by Termite Treater does not suspect acute coronary syndrome and continue to monitor and patient does not need anticoagulated as with history of liver cirrhosis, patient was seen by GI and ordered paracentesis diagnostic as well as therapeutic. Which is scheduled for tomorrow, will continue to monitor 11/03 today patient still complains of shortness of breath and abdominal pain denies any nausea or vomiting fever or chills, patient is scheduled for paracentesis later today, unable to diurese the patient because worsening kidney function, will continue to monitor will follow-up after paracentesis and further recommendation to follow (2) Pulmonary edema: Qualifiers: Chronicity: acute Qualified Code(s): J81.0 - Acute pulmonary edema Code(s): J81.1 - Chronic pulmonary edema Status: Acute Assessment and Plan: Most likely secondary volume overload due to ascites will continue to monitor (3) Ascites: Qualifiers: Ascites type: other type Qualified Code(s): R18.8 - Other ascites Code(s): R18.8 - Other ascites Status: Acute Assessment and Plan: Patient with a non alcoholic liver cirrhosis MUHAMMAD patient is scheduled for paracentesis diagnostic and therapeutic in the morning will follow. Subjective Date/time seen: 11/03/20 13:37 11/02 take patient is 75-year-old female with history of liver cirrhosis nonalcoholic patient has been seen camp program director at [facility] no details available, patient is a poor stool somewhat history is collected from her and from chart patient presented emergency depart with complaint shortness of breath, and large ascites, upon arrival patient tropes were also elevated, patient is seen by Termite Treater does not suspect acute coronary syndrome and continue to monitor and patient does not need anticoagulated as with history of liver cirrhosis, patient was seen by GI and ordered paracentesis diagnostic as well as therapeutic. Which is scheduled for tomorrow, will continue to monitor 11/03 today patient still complains of shortness of breath and abdominal pain denies any nausea or vomiting fever or chills, patient is scheduled for paracentesis later today, unable to diurese the patient because worsening kidney function, will continue to monitor will follow-up after paracentesis and further recommendation to follow Review of Systems Review of Systems: ROS unobtainable: Yes unobtainable due to medical condition Exam Narrative: Exam Narrative: Moderately obese Patient is comfortable, NAD HEENT: eyes are clear and none icteric LUNGS: Bilateral fair air with rales and rhonchi HEART: RR S1S2 ABD: BS+, enlarged ascites Lower extremities: edema SKIN: nonjaundiced Neuro: grossly intact. Objective Data Vital Signs Vital Signs: Vital Signs - 24 hr 11/02/20 14:00 11/02/20 16:00 11/02/20 16:30 Temperature 97.9 F Pulse Rate 66 66 64 Respiratory Rate 14 Blood Pressure 123/51 L Pulse Oximetry 97 97 11/02/20 18:00 11/02/20 19:00 11/02/20 20:00 Temperature 98 F Pulse Rate 63 65 65 Respiratory Rate 14 Blood Pressure 105/59 L Pulse Oximetry 97 97 11/02/20 21:52 11/02/20 22:00 11/02/20 22:30 Temperature Pulse Rate 65 97 Respiratory Rate 20 24 H Blood Pressure Pulse Oximetry 97 11/02/20 23:20 11/03/20 00
[2020-11-03 14:59] LABS: SARS-CoV-2 RNA PCR Negative
[2020-11-03 16:33] LABS: Appearance Peritoneal Fluid Cloudy (Clear); Color Peritoneal Fluid Yellow (Colorless); Nucleated Cells Peritoneal Flu 65 /uL (0-500); RBC Peritoneal Fluid 323 /uL (0-100000); Source Peritoneal Fluid Peritoneal Fluid
[2020-11-03 16:34] LABS: Lymphocytes Peritoneal Fluid 10 %; Macrophages Peritoneal Fluid 41 %; Monocytes Peritoneal Fluid 43 %; Neutrophils Peritoneal Fluid 6 % (0-25)
--- NOTE | 2020-11-03 16:50 | PM.PNCARD ---
Progress Note: A&P Assessment and Plan (1) Elevated troponin level not due myocardial infarction: Code(s): R77.8 - Other specified abnormalities of plasma proteins Status: Acute Assessment and Plan: No ischemic symptoms or EKG changes. Not acute coronary syndrome. Secondary to anemia, renal failure, shortness of breath associated decompensated cirrhosis. Would not pursue ischemic evaluation at this time. May consider as an outpatient appearing clinical status. Follow-up with Dr. Gaona as outpatient upon discharge. (2) Acute on chronic renal failure: Code(s): N17.9 - Acute kidney failure, unspecified; N18.9 - Chronic kidney disease, unspecified Status: Acute Assessment and Plan: Creatinine 2.0 this morning at from 1.6. (3) Cirrhosis of liver: Code(s): K74.60 - Unspecified cirrhosis of liver Status: Chronic Assessment and Plan: Chronic period followed at [facility]. GI consultation noted. Paracentesis plan today. (4) RODRIGUEZ (dyspnea on exertion): Code(s): R06.09 - Other forms of dyspnea Status: Acute Assessment and Plan: Secondary to pulmonary edema complicated by decompensated liver cirrhosis. normal LV systolic function on echo EF greater than 70%, no significant valve disease, pulmonary pressures are normal. Continue diuresis. Monitor renal function electrolytes. Volume overload and shortness of breath appeared to be due to complication from liver cirrhosis. (5) Anemia: Qualifiers: Anemia type: iron deficiency Iron deficiency anemia type: chronic blood loss Qualified Code(s): D50.0 - Iron deficiency anemia secondary to blood loss (chronic) Code(s): D64.9 - Anemia, unspecified Status: Acute Assessment and Plan: Chronic Anemia. Follow H&H. No evidence for active bleed. Additional Plan -elevated troponins -pulmonary edema -large ascites -recurrent pleural effusion -acute on chronic kidney injury -in regards to elevated troponins, demand ischemia suspected. No evidence of ischemia on EKG. Patient denies chest pain. Will obtain echocardiogram to assess cardiac structure and function. Patient does have a history of valve disease she was told it was mild. Discontinue Lovenox. -in regards to pulmonary edema start Lasix 20 mg IV b.i.d.. Monitor renal function. -regards to large ascites, recommended drainage and paracentesis. GI consultation is warranted as well. -patient does have recurrent pleural effusions and she had drained in the past 5 times. Last time was about 1 and half years ago. Subjective Date/time seen: Date of service: 11/03/20 16:50 Follow-up for elevated troponin, shortness of breath Patient feeling fatigued this morning. Breathing better. Denies chest pain or palpitations. No new acute issues overnight. Patient NPO for planned paracentesis. 2D echocardiogram revealed preserved LV systolic function no significant valve pathology. Review of Systems Review of Systems: All systems reviewed & are unremarkable except as noted in HPI and below Constitutional: Constitutional: Reports as per HPI, Denies chills, Reports fatigue, Denies fever(s), Reports malaise and Denies poor appetite Eyes: Eyes: Reports as per HPI, Denies eye discharge, Denies loss of vision, Denies eye pain and Denies photophobia ENT: Reports as per HPI, Denies dizziness, Denies epistaxis, Denies nasal congestion and Denies sore throat Cardiovascular: Cardiovascular: Reports as per HPI, Denies chest pain, Denies syncope, Denies pedal edema, Reports leg edema, Denies palpitations, Reports dyspnea, Reports dyspnea on exertion and Denies orthopnea Respiratory: Respiratory: Denies cough, Reports dyspnea, Reports dyspnea on exertion and Denies wheezing Gastrointestinal: Gastrointestinal: Reports as per HPI, Denies abdominal pain, Denies diarrhea, Denies nausea, Denies vomiting and Reports other (Abdomin
[2020-11-03 17:02] LABS: Glucose Point of Care 78 (65-105)
[2020-11-03] MEDS: ALBUMIN HUMAN 25% 25 GM/100 ML 200 ML IVPB (17:35)
--- NOTE | 2020-11-03 17:38 | PM.TDS ---
Transfer Discharge Sum: Prov Provider Date of admission: 11/02/20 07:05 Primary care physician: Laila Cox, GENERAL DOC Admitting clinician: Elo Krishnan MD Consults: 11/02/20 09:43 Consult to Physician Routine Comment: SPOKE WITH DR. WIGGINS Consulting Provider: Nilson Wiggins call box wirer/MD group to consult: spice miller Reason for consultation: SOB elevated tropes Has provider been notified: Yes 11/02/20 12:07 Consult to Physician Routine Comment: Consulting Provider: Elo Krishnan call box wirer/ group to consult: GI Reason for consultation: HX ascities & cirrohsis- possible need for paracentisis Has provider been notified: No 11/02/20 13:01 Consult to Physician Routine Comment: MESSAGE LEFT FOR DR. 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: Code(s): K75.81 - Nonalcoholic steatohepatitis (MUHAMMAD); K74.60 - Unspecified cirrhosis of liver Status: Acute Assessment and Plan: 11/03/20 13:37 11/02 patient is 75-year-old female with history of liver cirrhosis nonalcoholic patient has been seen it security engineer at [facility] no details available, patient is a poor stool somewhat history is collected from her and from chart patient presented emergency depart with complaint shortness of breath, and large ascites, upon arrival patient tropes were also elevated, patient is seen by Strapping Machine Operator does not suspect acute coronary syndrome and continue to monitor and patient does not need anticoagulated as with history of liver cirrhosis, patient was seen by GI and ordered paracentesis diagnostic as well as therapeutic. Which is scheduled for tomorrow, will continue to monitor 11/03 today patient still complains of shortness of breath and abdominal pain denies any nausea or vomiting fever or chills, patient is scheduled for paracentesis later today, unable to diurese the patient because worsening kidney function, will continue to monitor will follow-up after paracentesis and further recommendation to follow (2) Pulmonary edema: Qualifiers: Chronicity: acute Qualified Code(s): J81.0 - Acute pulmonary edema Code(s): J81.1 - Chronic pulmonary edema Status: Acute Assessment and Plan: Most likely secondary volume overload due to ascites will continue to monitor (3) Ascites: Qualifiers: Ascites type: other type Qualified Code(s): R18.8 - Other ascites Code(s): R18.8 - Other ascites Status: Acute Assessment and Plan: Patient with a non alcoholic liver cirrhosis MUHAMMAD patient is scheduled for paracentesis diagnostic and therapeutic in the morning will follow. Transfer Discharge Sum: Med Medications Active and Home Medications: Home Medications buspirone 15 mg PO BID 05/26/19 [History Confirmed 11/02/20] nadolol 20 mg PO HS 05/26/19 [History Confirmed 11/02/20] sertraline 100 mg PO DAILY 05/26/19 [History Confirmed 11/02/20] insulin aspart U-100 [Novolog Flexpen U-100 Insulin] See Rx Instructions .ROUTE .COMPLEX PRN 02/08/20 [History Confirmed 11/02/20] spironolactone 50 mg PO DAILY 02/08/20 [History Confirmed 11/02/20] ergocalciferol (vitamin D2) 1,250 mcg (50,000 unit) capsule See Rx Instructions .ROUTE .COMPLEX 02/29/20 [History Confirmed 11/02/20] ferrous sulfate, dried 160 mg (50 mg iron) tablet,extended release 160 mg PO DAILY 02/29/20 [History Confirmed 11/02/20] furosemide 20 mg tablet 40 mg PO QAM 02/29/20 [History Confirmed 11/02/20] insulin degludec [Tresiba FlexTouch U-200] 72 unit SUBCUT HS 11/02/20 [History Confirmed 11/02/20] Active Medications Dextrose (Dextrose 50% 25 Gm/50 Ml Syringe) 12.5 gm IV PUSH PRN PRN; Protocol
[2020-11-03 20:50] LABS: Glucose Point of Care 147 (65-105)
[2020-11-04] VITALS: PULSE 82; O2SAT 97
--- NOTE | 2020-11-04 00:44 | PC.NURSE ---
Report called to receiving nurse Rea at [facility] at 0030. Awaiting transport.
[2020-11-04 02:00] VITALS: PULSE 79
[2020-11-04 04:00] VITALS: BP 139/58; PULSE 72; PULSE 75; RESP 29; TEMP 36.3; O2SAT 95
[2020-11-04 05:17] LABS: Hematocrit 26.2 % (37.0-47.0); Hemoglobin 8.5 g/dL (12.0-15.0); Mean Corpuscular HGB Conc 32.4 g/dl (32-36); Mean Corpuscular Hemoglobin 30.8 pg (26-34); Mean Corpuscular Volume 94.9 fl (80-100); Mean Platelet Volume 10.3 fl (7.4-10.4); Platelet Count Result 104 k/mm3 (150-375); Red Blood Count 2.76 M/mm3 (4.2-5.4); Red Cell Distribution Width 14.6 % (11.5-14.5)
[2020-11-04 05:29] LABS: Alanine Aminotransferase 18 U/L (4-35); Albumin Level 2.9 g/dL (3.5-5.1); Alkaline Phosphatase 74 U/L (38-126); Anion Gap 6 mmol/L (8-16); Aspartate Amino Transferase 46 U/L (14-36); Bilirubin,Total 1.1 mg/dL (0.2-1.3); Blood Urea Nitrogen 42 mg/dL (7-17); Calcium 8.9 mg/dL (8.4-10.2); Carbon Dioxide 25 mmol/L (22-30); Chloride 106 mmol/L (98-107); Estimated CRCL calculation 30 ml/min; Estimated Glomerular Filt Rate 28; Glucose 113 mg/dL (65-105); Potassium 3.6 mmol/L (3.4-5.0); Sodium 137 mmol/L (137-145)
--- NOTE | 2020-11-04 05:59 | PC.NURSE ---
Patient awaiting transport to home via ambulance. Updated ETAs obtained from [facility] by this RN at 2037, [id number], 0138, and 0426. Other services contacted by this RN and were unavailable for transport.
[2020-11-04 06:00] VITALS: PULSE 68
--- NOTE | 2020-11-04 06:02 | PC.NURSE ---
Patient awaiting transport to [facility] via ambulance. Updated ETAs obtained from [facility] by this RN at 2306, 0138, and 0426. Other services contacted by this RN and were unavailable for transport.
--- NOTE | 2020-11-04 07:48 | PC.NURSE ---
Patient left floor with ambulance staff at 0745, and transferred to [facility] room 726. Patient oriented x3, no complaints of sob/cp at the time of discharge.
[2020-11-06 20:15] LABS: Albumin Peritoneal Fluid 0.8 g/dL
== END 2020-11-04 07:45 | disposition short-term general hospital (02) | DRG 441 ==
LOC: ANHED 07:04 → ANHIMU 09:02
PROVIDERS: Internal Medicine Gastroenterology; Admitting Provider Family Medicine; Emergency Provider Emergency Medicine; PCP Nurse Practitioner Adult Health; Visit Provider Family Medicine
DX: K75.81 Nonalcoholic steatohepatitis (NASH) (principal); J81.0 Acute pulmonary edema; J96.00 Acute respiratory failure, unspecified whether with hypoxia or hypercapnia; R18.8 Other ascites; N17.9 Acute kidney failure, unspecified; K74.60 Unspecified cirrhosis of liver; Z20.822 Contact with and (suspected) exposure to COVID-19; R93.5 Abnormal findings on diagnostic imaging of other abdominal regions, including retroperitoneum; E11.22 Type 2 diabetes mellitus with diabetic chronic kidney disease; I12.9 Hypertensive chronic kidney disease with stage 1 through stage 4 chronic kidney disease, or unspecified chronic kidney disease; N18.9 Chronic kidney disease, unspecified; R77.8 Other specified abnormalities of plasma proteins; D50.0 Iron deficiency anemia secondary to blood loss (chronic); Z79.4 Long term (current) use of insulin; Z85.72 Personal history of non-Hodgkin lymphomas; Z85.3 Personal history of malignant neoplasm of breast
CPT/HCPCS: 36415; 49083; 71045; 71275; 80048; 80053; 82042; 82948; 83605; 83615; 83735; 83880; 84484; 85025; 85027; 85380; 85610; 85730; 87040; 87070; 87075; 87205; 88104; 88108; 88305; 88321; 89051; 93005; 94002; 94003; 97161; 97165; 99291; A9270; C8929; C9803; J0456; J0696; J1815; J1940; P9047; Q9957; Q9967; U0003; U0005

== ENCOUNTER 2020-12-27 22:58 | Inpatient (IN) | payer MEDICARE, OTHER, SELFPAY ==
--- NOTE | ~2020-12-27 | CT_ITS ---
EXAMINATION: CT chest abdomen pelvis wo con DATE: 12/30/2020 11:23 CDT INDICATION: Acute altered mental status. Distended abdomen. Nausea and vomiting. TECHNIQUE: Computed tomography (CT) of the chest, abdomen, and pelvis was performed without intraveno us contrast. The dose-length product was 1450.83 mGy-cm. Automated exposure control and iterative rec onstruction technique were employed. COMPARISON: CT dated 11/02/2020 FINDINGS: CHEST CT: Significant progression of extensive patchy bilateral airspace consolidation, most likely pneumonia v ersus edema. There is mediastinal lymphadenopathy. Cardiomegaly. Bilateral pleural effusions, left gr eater than right. There are bilateral breast nodules. ABDOMEN/PELVIS CT: Cirrhosis of the liver. Large amount of ascites. Splenomegaly. Nonobstructive bowel gas pattern. Fole y catheter present in the bladder. No free air. There are bilateral hip arthroplasties. No significan t vascular abnormality. No lymphadenopathy. IMPRESSION: 1. Significant progression of extensive patchy bilateral airspace consolidation, most likely pneumoni a. Edema less favored. 2: Bilateral pleural effusions, left greater than right. 3: Ill-defined bilateral breast nodules/masses. Recommend correlation with mammography/breast ultras ound when the patient's condition permits. 4: Cardiomegaly. 5: Cirrhosis with splenomegaly. Probable portal hypertension. 6: Large amount of ascites. Reviewed, dictated and finalized at location A. IMPRESSION: 1. Significant progression of extensive patchy bilateral airspace consolidation , most likely pneumonia. Edema less favored. 2: Bilateral pleural effusions, left greater than right. 3: Ill-defined bilateral breast nodules/masses. Recommend correlation with essence mography/breast ultrasound when the patient's condition permits. 4: Cardiomegaly. 5: Cirrhosis with splenomegaly. Probable portal hypertension. 6: Large amount of ascites.
--- NOTE | ~2020-12-27 | XR_ITS ---
EXAMINATION: XR chest 1V portable DATE: 12/29/2020 05:37 INDICATION: Left pleural effusion. TECHNIQUE: frontal view of the chest was obtained. COMPARISON: Chest radiograph dated 12/28/2020 FINDINGS: Pulmonary vascular congestion increasing diffuse interstitial and scattered patchy airspace opacities throughout both lungs to at least in part to increasing pulmonary edema. No significant interval mary nge in small bilateral pleural effusions accounting for differences in positioning. No pneumothorax. Cardiomegaly. Partially visualized plate and screw fixation for mid cervical anterior spinal fusion. Changes of prior distal right clavicle resection. IMPRESSION: 1. Increasing bilateral interstitial and airspace opacities to at least in part to worsening pulmonar y edema potentially with superimposed pneumonia and/or atelectasis. 2. Small bilateral pleural effusions. 3. Cardiomegaly. Reviewed, dictated and finalized at location A. IMPRESSION: 1. Increasing bilateral interstitial and airspace opacities to at least in part to worsening pulmonary edema potentially with superimposed pneumonia and/or at electasis. 2. Small bilateral pleural effusions. 3. Cardiomegaly.
--- NOTE | ~2020-12-27 | XR_ITS ---
XR chest 1V portable 12/31/2020 06:10 Indication: Diffuse bilateral infiltrates. Shortness of breath. Procedure: AP portable chest Comparison: Comparison to multiple prior studies sequentially, with oldest reviewed study dated 12/28. Findings: Cardiomegaly. Diffuse bilateral airspace disease. Small right pleural effusion. No pneumoth orax. No acute osseous abnormality. Impression: 1: Cardiomegaly with diffuse bilateral airspace disease which may represent pneumonia and/or edema. S lightly improved. 2: Small right pleural effusion. Reviewed, dictated and finalized at location A. Impression: 1: Cardiomegaly with diffuse bilateral airspace disease which may represent pne umonia and/or edema. Slightly improved. 2: Small right pleural effusion.
--- NOTE | ~2020-12-27 | XR_ITS ---
EXAMINATION: XR chest 2V DATE: 12/27/2020 23:44 INDICATION: Shortness of breath. TECHNIQUE: Frontal and lateral views of the chest were obtained on 3 radiographs. COMPARISON: None. FINDINGS: There is a moderate-sized left pleural effusion. There are airspace opacities in all right lung zones and left lung base. No pneumothorax. Cardiomegaly is noted. There are changes of anterior fusion procedure in cervical spine. IMPRESSION: 1. Moderate-sized left pleural effusion. 2. Diffuse right lung disease, consistent with pulmonary edema versus pneumonia. 3. Airspace opacities at left lung base, consistent with atelectasis versus pneumonia. 4. Cardiomegaly. Reviewed, dictated and finalized at location A. IMPRESSION: 1. Moderate-sized left pleural effusion. 2. Diffuse right lung disease, consistent with pulmonary edema versus pneumonia . 3. Airspace opacities at left lung base, consistent with atelectasis versus pne umonia. 4. Cardiomegaly.
--- NOTE | ~2020-12-27 | CT_ITS ---
EXAMINATION: CT brain wo con DATE: 12/30/2020 11:15 INDICATION: Acute altered mental status TECHNIQUE: Computed tomography (CT) of the head was performed without intravenous contrast. The dose- length product was 1362.00 mGy-cm. Automated exposure control and iterative reconstruction technique were employed. COMPARISON: None FINDINGS: Study limited by motion artifact. Mild generalized atrophy, within normal limits for age. N o acute intracranial hemorrhage, infarction, mass or mass effect. No ventriculomegaly or midline shif t. Basilar cisterns are patent. Paranasal sinuses and mastoids are pneumatized. No depressed skull fr actures. There are scattered mild periventricular and subcortical white matter changes, most likely r elated to small vessel ischemic disease (microangiopathy). IMPRESSION: 1. No acute intracranial abnormality. 2: Chronic age-related findings. Reviewed, dictated and finalized at location A.
--- NOTE | ~2020-12-27 | US_ITS ---
EXAMINATION: US thoracentesis DATE: 12/28/2020 11:56 INDICATION: Left pleural effusion TECHNIQUE: The procedure and its risks and benefits were discussed with the patient. Potential risks discussed included bleeding, infection, and pneumothorax. The patient understood the risks and agreed to proceed. The skin was prepped and draped in sterile fashion. 1% lidocaine was used for local anes thesia. Under ultrasound guidance, a 5 Fr catheter with trochar was advanced into the left pleural ef fusion. Fluid was aspirated. The catheter was removed, and a dressing was applied. There were no imme diate complications. FINDINGS: Ultrasound images demonstrate a moderate-sized left pleural effusion and the catheter within the f luid. IMPRESSION: 1. Successful ultrasound-guided thoracentesis yielding 1000 mL of cloudy reddish fluid. Reviewed, dictated and finalized at location A. IMPRESSION: 1. Successful ultrasound-guided thoracentesis yielding 1000 mL of cloudy radha sh fluid.
--- NOTE | ~2020-12-27 | XR_ITS ---
EXAMINATION: XR chest 1V portable DATE: 12/29/2020 22:30 INDICATION: Shortness of breath. TECHNIQUE: A single frontal view of the chest was obtained on 2 radiographs. COMPARISON: Chest single view at 5:28 AM, chest CT 10/09/2020 FINDINGS: There are patchy airspace opacities involving all lung zones bilaterally, right worse than left. There are small pleural effusions. No pneumothorax. Cardiomegaly is noted. IMPRESSION: 1. Stable diffuse lung disease, consistent with pulmonary edema versus pneumonia. 2. Small pleural effusions with worsening on the right. 3. Cardiomegaly. Reviewed, dictated and finalized at location A. IMPRESSION: 1. Stable diffuse lung disease, consistent with pulmonary edema versus pneumoni a. 2. Small pleural effusions with worsening on the right. 3. Cardiomegaly.
--- NOTE | ~2020-12-27 | US_ITS ---
EXAMINATION: US paracentesis abd w/image DATE: 12/28/2020 11:56 INDICATION: Ascites. TECHNIQUE: The procedure and its risks and benefits were discussed with the patient. Potential risks discussed included bleeding and infection. The skin was prepped and draped in sterile fashion. 1% lid ocaine was used for local anesthesia. Under ultrasound guidance, a 5 Fr catheter with trochar was adv anced into the ascites in the right lower quadrant. Fluid was aspirated into vacuum bottles. The cath eter was removed, and a dressing was applied. There were no immediate complications. FINDINGS: Ultrasound images demonstrate ascites and the catheter within the fluid. IMPRESSION: 1. Successful ultrasound-guided paracentesis yielding 5000 mL of cloudy yellow fluid. Reviewed, dictated and finalized at location A.
--- NOTE | ~2020-12-27 | US_ITS ---
US renal BI 12/31/2020 10:15 Procedure: Realtime transabdominal ultrasound of the kidneys and bladder. Indication: Acute renal insufficiency Comparison: No prior studies for comparison. Findings: Renal echotexture is normal bilaterally without hydronephrosis, contour deforming mass or r enal calculus. The right kidney measures 10.2 cm and left kidney measures 10.2 cm. Bladder is not di stended due to Watson catheter. Spleen is enlarged measuring 15.6 cm. There is a small amount of ascit es Impression: 1: Unremarkable renal ultrasound. No stones, masses or hydronephrosis. 2: Splenomegaly. 3: Small amount of ascites. Reviewed, dictated and finalized at location A. Impression: 1: Unremarkable renal ultrasound. No stones, masses or hydronephrosis. 2: Splenomegaly. 3: Small amount of ascites.
--- NOTE | ~2020-12-27 | XR_ITS ---
XR chest 1V portable 12/30/2020 09:05 Indication: Pleural effusions. Procedure: AP portable chest Comparison: Comparison to multiple prior studies sequentially, with oldest reviewed study dated 12/27. Findings: Stable extensive patchy bilateral airspace disease, compatible with pneumonia. Small pleura l effusions. No pneumothorax. Cardiomegaly. Impression: 1: Stable diffuse bilateral lung disease, compatible with pneumonia versus edema. 2: Small pleural effusions. 3: Cardiomegaly. Reviewed, dictated and finalized at location A. Impression: 1: Stable diffuse bilateral lung disease, compatible with pneumonia versus conrado a. 2: Small pleural effusions. 3: Cardiomegaly.
--- NOTE | ~2020-12-27 | XR_ITS ---
EXAMINATION: [id number]_CR DATE: 12/28/2020 10:44 INDICATION: Pleural effusion TECHNIQUE: frontal view of the chest was obtained. COMPARISON: Chest radiograph dated 12/27/2020 FINDINGS: Opacities throughout the right lung and in the left lower lung zone. Small bilateral pleural effusion s significantly decreased on the left. No pneumothorax. Cardiomegaly. Partially visualized anterior p late and screw fixation for spinal fusion in the mid cervical spine. Change of prior distal right cla vicle resection. IMPRESSION: 1. Small bilateral pleural effusions, decreased on the left post left thoracentesis. 2. Airspace opacities throughout the right lung and at the left lower lung zone which could represent pneumonia, asymmetric pulmonary edema, atelectasis or some combination thereof. 3. Cardiomegaly. Reviewed, dictated and finalized at location A. IMPRESSION: 1. Small bilateral pleural effusions, decreased on the left post left thoracent esis. 2. Airspace opacities throughout the right lung and at the left lower lung zone which could represent pneumonia, asymmetric pulmonary edema, atelectasis or so me combination thereof. 3. Cardiomegaly.
[2020-12-27 22:56] VITALS: BP 184/59; PULSE 68; RESP 22; TEMP 36.6; O2SAT 100
--- NOTE | 2020-12-27 23:10 | ECG_ITS ---
Measurements Intervals [place] Rate: 66 P: 38 MA: 152 QRS: 6 QRSD: 105 T: 19 QT: 375 QTc: 393 Interpretive Statements SINUS RHYTHM NONSPECIFIC ST & T-WAVE ABNORMALITY- DIFFUSE LEADS BASELINE ARTIFACT- I, III, AVR, AVL, AVF, V3 BORDERLINE ECG Electronically Signed On 12-28-2020 6:24:23 CDT by Tavo Lujan D.O.
[2020-12-27 23:28] VITALS: PULSE 67
[2020-12-28] VITALS (13 sets, daily range): BP systolic 116–171; BP diastolic 40–72; PULSE 66–74; RESP 18–30; TEMP 36.1–36.4; O2SAT 93–100
[2020-12-28 00:39] LABS: Basophils Percent Auto 0.6 % (0.2-1.2); Eosinophils Absolute Auto 0.2 K/mm3 (0-0.3); Eosinophils Percent Auto 4.1 % (0-4.4); Hematocrit 31.3 % (42.0-52.0); Hemoglobin 9.9 g/dL (14.0-18.0); Immature Granulocyte Absolute 0.02 K/mm3 (0.00-0.031); Immature Granulocyte Percent A 0.4 % (0-0.5); Lymphocytes Percent Auto 14.8 % (18.3-44.2); Mean Corpuscular HGB Conc 31.6 g/dl (32-36); Mean Corpuscular Hemoglobin 30.9 pg (26-34); Mean Corpuscular Volume 97.8 fl (80-100); Mean Platelet Volume 10.6 fl (7.4-10.4); Monocytes Absolute Auto 0.8 K/mm3 (0.1-0.6); Monocytes Percent Auto 15.2 % (2.6-8.5); Neutrophils Absolute Auto 3.5 K/mm3 (1.3-6.7); Neutrophils Percent Auto 64.9 % (45.5-73.1); Platelet Count Result 116 k/mm3 (150-375); Red Cell Distribution Width 15.5 % (11.5-14.5); White Blood Count 5.4 K/mm3 (4.5-10.0)
[2020-12-28 00:48] LABS: Anion Gap 4 mmol/L (8-16); Blood Urea Nitrogen 22 mg/dL (9-20); Calcium 9.1 mg/dL (8.4-10.2); Carbon Dioxide 33 mmol/L (22-30); Chloride 106 mmol/L (98-107); Estimated CRCL calculation 57 ml/min; Estimated Glomerular Filt Rate 59; Glucose 147 mg/dL (75-110); Potassium 3.1 mmol/L (3.4-5.0); Sodium 143 mmol/L (137-145)
[2020-12-28 00:57] LABS: NT Pro B Type Natriuretic Pept 2630 pg/mL (5-100)
--- NOTE | 2020-12-28 01:11 | ED.SOB ---
HPI - SOB/Dyspnea General Chief Complaint: Shortness of Breath/Dyspnea Stated Complaint: difficulty breathing Time Seen by Provider: 12/27/20 23:00 Source: patient and family Mode of arrival: EMS Limitations: clinical condition History of Present Illness HPI Narrative: 75-year-old with a history of hypertension, diabetes, cirrhosis of the liver nonalcoholic, breast CA, s/p cardiac arrest 3 years ago at [facility] was brought in from home with complaints of marked weakness for past 3 days. who is at the bedside reports that she is unable to walk even few feet gets extremely short winded. He states that on 3 L of oxygen and is able to maintain levels up to 92 to 93%. Patient denies any chest pain or fever or chills. She states that her abdomen is distended. MD elicited complaint: shortness of breath Pertinent past history: other (Ascites) Onset (ago): day(s) (3) Timing: constant Severity: moderate Exacerbating factors: exertion Relieving factors: oxygen and rest Associated symptoms: denies other symptoms Related Data Home Medications Medication Instructions Recorded Confirmed buspirone mg 12/28/20 12/28/20 dulaglutide [Trulicity] mg SUBCUT 12/28/20 ergocalciferol (vitamin D2) 12/28/20 furosemide 12/28/20 insulin degludec [Tresiba unit SUBCUT 12/28/20 FlexTouch U-200] nadolol 12/28/20 rifaximin [Xifaxan] mg 12/28/20 sertraline mg 12/28/20 spironolactone 12/28/20 Allergies Allergy/AdvReac Type Severity Reaction Status Date / Time No Known Allergies Allergy Verified 12/28/20 01:18 Review of Systems Review of Systems: All systems reviewed & are unremarkable except as noted in HPI and below Constitutional: Constitutional: Reports weakness Eyes: Eyes: Reports no additional eye complaints ENT: Reports system reviewed and no additional complaints, except as documented Cardiovascular: Cardiovascular: Reports no additional cardiovascular complaints Respiratory: Respiratory: Reports as per HPI Gastrointestinal: Gastrointestinal: Reports as per HPI Musculoskeletal: Musculoskeletal: Reports no additional musculoskeletal complaints Integumentary/Breasts: Skin/Breast: Reports system reviewed and no additional complaints, except as docu Neurologic: Reports system reviewed and no additional complaints, except as documented Exam Narrative: Exam Narrative: GENERAL: ill-appearing, well-nourished, and in no acute distress. HEAD: Normocephalic, atraumatic. EYES: PERRLA and EOMI. ENT: Nares clear, no rhinorrhea or epistaxis. Mucous membranes moist. NECK: Supple. CHEST: Decreased breath sounds No respiratory distress. HEART: Regular rate and rhythm. No murmur heard. Normal peripheral pulses. ABDOMEN: Distended ,has fluid thrill ascites . EXTREMITIES: Normal range of motion. has 2 plus edema SKIN: Warm, dry, no rash. NEURO: No focal deficits. Alert and oriented x3. PSYCH: Normal mood and affect. Course Course Emergency Course: Inform about her lab work, EKG findings will admit to the hospital. Also consider doing paracentesis as well as thoracentesis tomorrow. Discussed with the hospitalist agreed for admission. Vital Signs Vital signs: Vital Signs Temperature 36.6 C 12/27/20 22:56 Pulse Rate 68 12/27/20 22:56 Respiratory Rate 22 H 12/27/20 22:56 Blood Pressure 184/59 H 12/27/20 22:56 Pulse Oximetry 100 12/27/20 22:56 Temperature 36.6 C 12/27/20 22:56 Pulse Rate 67 12/27/20 23:28 Respiratory Rate 22 H 12/27/20 22:56 Blood Pressure 184/59 H 12/27/20 22:56 Pulse Oximetry 100 12/27/20 22:56 MDM - SOB/Dyspnea Lab Data Result diagrams: 12/28/20 00:28 12/28/20 00:28 Labs: Lab Results 12/28/20 12/28/20 12/28/20 Range/Units 00:28 00:28 00:28 WBC 5.4 (4.5-10.0) K/mm3 RBC 3.20 L (4.6-6.20) M/mm3 Hgb 9.9 L (14.0-18.0) g/dL Hct 31.3 L (42.0-52.0) % MCV 97.8 (80-100) fl
[2020-12-28] MEDS: FUROSEMIDE INJ 40 MG/4 ML VIAL IV PUSH ×2 (01:46→17:49)
--- NOTE | 2020-12-28 02:38 | PC.NURSE ---
SBAR received by ED. Report called at 0230 and given by CLAUDIO Cutler to this nurse. All questions answered and plan of care reviewed. Patient to go to 3 med/surg room 331.
--- NOTE | 2020-12-28 02:43 | ADMGEN ---
This patient, Shweta Russell, was admitted to [address] [place] [address] Room 331-01 at 0243 from the Emergency department. Patient/family oriented to hospital policies and general routines including ID bracelet, bed and alarms, visiting hours, pain management, procedures, bathroom and other care routines, personal items, smoking policy, room service/diet, and visiting hours. Information on how to activate the Rapid Response Team has been discussed. Patient/Family are encouraged to report perceived risks to care and to ask questions if they do not understand what they are told or what they should do.
--- NOTE | 2020-12-28 03:28 | PM.IMHP ---
H&P: HPI History of Present Illness Date/Time: 12/28/20 03:28 Chief Complaint: Shortness of breath Narrative: This is a 75-year-old female with past medical history significant for known alcoholic hepatic cirrhosis, cardiac arrest, type 2 diabetes mellitus. The patient was brought to the emergency room due to 's concerns for patient progressive worsening shortness of breath as well as generalized weakness and increased abdominal girth. Patient denies any chills fevers or rigors she feels very uncomfortable she is usually on supplemental oxygen 3 L by nasal cannula saturates 92-93%. Preliminary workup was significant for checks x-ray with lung infiltrates and left-sided pleural effusion moderate-size. A BNP was elevated. Review of Systems Review of Systems: ROS unobtainable: Yes unobtainable due to medical condition (Patient is very sick and uncomfortable) [facility] Family History Family History (Updated 12/28/20 @ 03:08 by Krysta Pruett RN) Father Hypertension Grandparent Hypertension Mother Breast cancer Father Asthma Social History Social History Smoking status: Never smoker Alcohol intake: unknown Substance use: unknown Spiritual care concerns: No Meds Home Medications and Allergies Home Medications Medication Instructions Recorded Confirmed Type buspirone 15 mg PO Q12H 12/28/20 12/28/20 History ergocalciferol (vitamin D2) 1,250 mcg PO WEEKLY 12/28/20 12/28/20 History ferrous sulfate, dried 160 mg PO DAILY 12/28/20 12/28/20 History furosemide 20 mg PO DAILY 12/28/20 12/28/20 History insulin degludec [Tresiba 35 unit SUBCUT HS 12/28/20 12/28/20 History FlexTouch U-200] nadolol 20 mg PO HS 12/28/20 12/28/20 History rifaximin [Xifaxan] 550 mg PO Q12H 12/28/20 12/28/20 History sertraline 100 mg PO DAILY 12/28/20 12/28/20 History spironolactone 50 mg PO DAILY 12/28/20 12/28/20 History Allergies Allergy/AdvReac Type Severity Reaction Status Date / Time No Known Allergies Allergy Verified 12/28/20 03:01 Vital Signs Vital Signs - 24 hr 12/27/20 22:56 12/27/20 23:28 12/28/20 00:30 Temperature 98 F Pulse Rate 68 67 66 Respiratory Rate 22 H 24 H Blood Pressure 184/59 H 156/59 H Pulse Oximetry 100 100 12/28/20 01:30 12/28/20 02:34 Temperature Pulse Rate 66 69 Respiratory Rate 23 H 22 H Blood Pressure 145/60 H 156/72 H Pulse Oximetry 98 100 Exam Narrative: Exam Narrative: [place] Const: General: well developed, alert, awake, acute distress mild and ill appearing chronically Nutritional Appearance: average body habitus Orientation/consciousness: patient oriented x3 HENMT: Head: normal to inspection, normocephalic and atraumatic Ears: hearing grossly normal bilaterally General nose exam: Normal external nose present Face and sinus: normal facial exam Eyes: General: appearance normal, both eyes and all related structures Sclera: sclerae normal Pupils: Equal, round and reactive pupils present EOM: EOMs intact bilaterally Neck: Neck: full ROM, no lymphadenopathy, supple and no JVD Thyroid: thyroid normal Lymphatic: no lymphadenopathy noted Resp: Effort & Inspection: normal respiratory effort, able to speak in complete sentences, no audible wheezes and no nasal flaring Auscultation: crackles bilateral and diminished lung sounds on the left (Based) Cardio: Jugular venous distension: no JVD Rate: regular rate Rhythm: regular rhythm Heart sounds: S1 normal heart sound present and S2 normal heart sound present GI: Inspection: distended GI Palp: Yes Firmness to palpation present (GI), No Tenderness to palpation present (GI), No Guarding due to palpation present (GI) and Yes No hepatosplenomegaly present : General: Yes deferred Skin: Rashes: no rashes Wounds: no wounds Neuro: General: patient oriented x3 and CN's II-XI intact bilaterally Cranial nerves: Yes CN's II-XII intact bilaterally and Y
[2020-12-28] MEDS: PHYTONADIONE ADULT INJ 10 MG in DEXTROSE 5% IN WATER 50 ML 100 MG IVPB (04:19)
[2020-12-28] MEDS: ALBUMIN HUMAN 25% 25 GM/100 ML 200 ML IVPB ×3 (05:20→20:45)
[2020-12-28 06:41] LABS: INR 1.3; Partial Thromboplastin Time 32.6 SECONDS (22.3-36.8)
[2020-12-28 08:56] LABS: Glucose Point of Care 96 mg/dl (65-105)
--- NOTE | 2020-12-28 11:13 | PM.IMPN ---
Progress Note: A&P Assessment and Plan (1) Acute congestive heart failure: Code(s): I50.9 - Heart failure, unspecified Status: Acute Assessment and Plan: Obtain echocardiogram Lasix p.r.n. (2) Chronic respiratory failure with hypoxia: Code(s): J96.11 - Chronic respiratory failure with hypoxia Status: Acute Assessment and Plan: Plan for thoracentesis Consult pulmonary (3) Abdominal ascites: Qualifiers: Ascites type: other type Qualified Code(s): R18.8 - Other ascites Code(s): R18.8 - Other ascites Status: Acute Assessment and Plan: Plan for paracentesis Consult GI (4) Pleural effusion: Code(s): J90 - Pleural effusion, not elsewhere classified Status: Acute Assessment and Plan: Thoracentesis, plan to check pH, cell count, cultures, LDH Discussed with pulmonary (5) Weakness: Code(s): R53.1 - Weakness Status: Acute Assessment and Plan: PT and OT Subjective Date/time seen: 12/28/20 11:13 Interval history: Patient complained of mild shortness of breath, denies any pain, plan for paracentesis and thoracentesis by Interventional Radiology today Exam Const: General: cooperative and no acute distress HENMT: Head: normal to inspection Eyes: General: appearance normal, both eyes and all related structures Neck: Neck: normal visual inspection Chest: Chest palpation & inspection: normal inspection of the chest Resp: Effort & Inspection: normal respiratory effort Cardio: Jugular venous distension: no JVD Rate: regular rate GI: Inspection: normal to inspection and distended Objective Data Vital Signs Vital Signs: Vital Signs - 24 hr 12/27/20 22:56 12/27/20 23:28 12/28/20 00:30 Temperature 98 F Pulse Rate 68 67 66 Respiratory Rate 22 H 24 H Blood Pressure 184/59 H 156/59 H Pulse Oximetry 100 100 12/28/20 01:30 12/28/20 02:34 12/28/20 03:00 Temperature 97 F L Pulse Rate 66 69 66 Respiratory Rate 23 H 22 H 20 Blood Pressure 145/60 H 156/72 H 156/56 H Pulse Oximetry 98 100 96 12/28/20 06:00 Temperature 97.6 F Pulse Rate 70 Respiratory Rate 18 Blood Pressure 164/60 H Pulse Oximetry 99 Intake/Output Intake/Output: Intake & Output 12/25/20 12/26/20 12/27/20 12/28/20 23:59 23:59 23:59 23:59 Intake Total 51 Output Total 300 Balance -249 Meds/Results Medications: Active Medications Generic Name Dose Route Start Last Admin Trade Name Freq PRN Reason Stop Dose Admin Buspirone HCl 15 mg 12/28/20 09:00 Buspirone Hcl 5 Mg Tablet PO Q12HR [facility] Ergocalciferol 50,000 unit 12/31/20 09:00 Ergocalciferol 50,000 Unit Capsule PO Cutler@0900 [facility] Ferrous Sulfate 142 mg 12/28/20 08:00 Ferrous Sulfate Dried 142 Mg Tabcr PO DAILY@0800 [facility] Furosemide 40 mg 12/28/20 09:00 Furosemide Inj 40 Mg/4 Ml Vial IV PUSH BID [facility] Albumin Human 200 mls @ 60 mls/hr 12/28/20 06:00 12/28/20 05:20 Albutein IVPB 60 mls/hr Q8HR [facility] Administration Lactulose 20 gm 12/28/20 09:00 Lactulose 20 Gm/30 Ml Udc PO QAM [facility] Morphine Sulfate 4 mg 12/28/20 01:37 Morphine Sulfate (*Crx) 4 Mg/Ml Inj IV PUSH Q2H PRN Pain Rated 7-10 Nadolol 20 mg 12/28/20 21:00 Nadolol 20 Mg Tablet PO HS [facility] Ondansetron HCl 4 mg 12/28/20 01:37 Ondansetron Inj 4 Mg/2 Ml Vial IV PUSH Q4H PRN Nausea Rifaximin 550 mg 12/28/20 09:00 Rifaximin 550 Mg Tablet PO Q12HR [facility] Sertraline HCl 100 mg 12/28/20 09:00 Sertraline Hcl 50 Mg Tablet PO DAILY [facility] Spironolactone 50 mg 12/28/20 09:00 Spironolactone 50 Mg Tablet PO DAILY [facility] Radiology Results: ITS Impressions Chest X-Ray 12/28/20 10:59 IMPRESSION: 1. Small bilateral pleural effusions, decreased on the left post left thoracentesis. 2. Airspace opacities throughout the right lung and at the left lower lung zone which cou
[2020-12-28 12:46] LABS: pH Pleural Fluid 7.421 (7.210-7.500)
--- NOTE | 2020-12-28 13:34 | PCOTNOTE ---
Attempted OT evaluation, but unable to complete at this time as patient unable to keep eyes open. Patient requested therapist to come back at another time. Spouse present and reported that patient was in the ER until late last night. Patient also had a paracentesis and thoracentesis completed today, per RN. Will attempt again at another time.
[2020-12-28 13:51] LABS: Lactate Dehydrogenase 358 U/L (313-618)
[2020-12-28 14:09] LABS: Alveolar/Arterial O2 Gradient 90.9 mmHg; Base Excess ABG 7.9 mEq/l (+/-2.0); Fractional Inspired Oxygen 32 %; HCO3 ABG 33.6 mEq/l (22.0-26.0); Oxygen Content ABG 12.5 %vol (16.0-22.0); Oxygen Saturation ABG 94.8 % (95.0-100.0); Oxyhemoglobin 93.6 % THb (90.0-100.0); PO2 ABG 74.1 mmHg (80.0-100.0); PO2 FiO2 Ratio Arterial Blood 2.32 %; Total Hemoglobin 9.4 g/dL (12.0-18.0); pH ABG 7.412 (7.350-7.450)
[2020-12-28 14:11] LABS: Site Drawn RIGHT RADIAL
[2020-12-28 14:12] LABS: Device NASAL CANNULA; Modified Allen's Test Pass
--- NOTE | 2020-12-28 14:37 | PCPTNOTE ---
Attempted PT evaluation. Unable to see patient due to lethargy and inability to stay awake. Will attempt at a later date. DAVIN LopezT
--- NOTE | 2020-12-28 15:10 | WPDGICN ---
Assessment and Plan Assessment and plan (1) Abdominal ascites: Qualifiers: Ascites type: other type Qualified Code(s): R18.8 - Other ascites Code(s): R18.8 - Other ascites Status: Acute Assessment and Plan: she has had this for least 2 years. Periodically she requires paracentesis. She just came back from Radiology with removal of 5 L of fluid . I think that she should be on a higher dose of spironolactone until she gets back to the clinic at [facility] (2) Cirrhosis: Code(s): K74.60 - Unspecified cirrhosis of liver Status: Acute Assessment and Plan: she is followed by the liver clinic at [facility]. (3) Pleural effusion: Code(s): J90 - Pleural effusion, not elsewhere classified Status: Acute Assessment and Plan: She has had thoracentesis before but not recently until today. She was becoming short of breath which is the main reason for her admission. Now she is breathing comfortably. GI Consult Note Consult date/time: 12/28/20 15:10 HPI: Shweta Russell is a 75 year old female with known cirrhosis and portal hypertension who presented to the emergency room because of fatigue and shortness of breath. She was found to have tense ascites. Her who was at bedside giving most of the history. She is sleepy herself. She was diagnosed a couple years ago with the cirrhosis. She had been a drinker apparently. She has been seen at [facility]. He states that her last paracentesis was 8 weeks ago at [facility]. She has also had thoracentesis several times but not lately. sShe has just come back from Radiology where she had paracentesis and thoracentesis with removal of 5 L and 1 L respectively. She has never had a GI bleed. He states that she had 1 endoscopy 2 years ago. He does not recall varices being discussed but after the procedure he was told that that was the reason she was going Nadolol according to the she has never had alcohol withdrawal syndrome. Also he does not know anything about her ammonia levels being high, although she is on Xifaxan Review of Systems Review of Systems: All systems reviewed & are unremarkable except as noted in HPI and below [facility] Family History Family History Father Hypertension Grandparent Hypertension Mother Breast cancer Father Asthma Social History Social History Smoking status: Never smoker Alcohol intake: unknown Substance use: unknown Spiritual care concerns: No Meds Home Medications and Allergies Home Medications Medication Instructions Recorded Confirmed Type buspirone 15 mg PO Q12H 12/28/20 12/28/20 History ergocalciferol (vitamin D2) 1,250 mcg PO WEEKLY 12/28/20 12/28/20 History ferrous sulfate, dried 160 mg PO DAILY 12/28/20 12/28/20 History furosemide 20 mg PO DAILY 12/28/20 12/28/20 History insulin degludec [Tresiba 35 unit SUBCUT HS 12/28/20 12/28/20 History FlexTouch U-200] nadolol 20 mg PO HS 12/28/20 12/28/20 History rifaximin [Xifaxan] 550 mg PO Q12H 12/28/20 12/28/20 History sertraline 100 mg PO DAILY 12/28/20 12/28/20 History spironolactone 50 mg PO DAILY 12/28/20 12/28/20 History Allergies Allergy/AdvReac Type Severity Reaction Status Date / Time No Known Allergies Allergy Verified 12/28/20 03:01 Vital Signs Vital Signs - 24 hr 12/27/20 22:56 12/27/20 23:28 12/28/20 00:30 Temperature 36.6 C Pulse Rate 68 67 66 Respiratory Rate 22 H 24 H Blood Pressure 184/59 H 156/59 H Pulse Oximetry 100 100 12/28/20 01:30 12/28/20 02:34 12/28/20 03:00 Temperature 36.1 C L Pulse Rate 66 69 66 Respiratory Rate 23 H 22 H 20 Blood Pressure 145/60 H 156/72 H 156/56 H Pulse Oximetry 98 100 96 12/28/20 06:00 12/28/20 11:54 12/28/20 12:03 Temperature 36.4 C Pulse Rate 70 71
[2020-12-28] MEDS: LACTULOSE 20 GM/30 ML UDC PO (15:21)
[2020-12-28] MEDS: FERROUS SULFATE DRIED 142 MG TABCR PO (15:22)
[2020-12-28] MEDS: SERTRALINE HCL 50 MG TABLET 100 MG PO (15:22)
[2020-12-28] MEDS: rifAXIMin 550 MG TABLET PO ×2 (15:23→20:45)
[2020-12-28 17:00] LABS: Ammonia 24 umol/L (9-30)
[2020-12-28 17:11] LABS: Glucose Point of Care 60 mg/dl (65-105)
[2020-12-28 17:58] LABS: Glucose Point of Care 90 mg/dl (65-105)
[2020-12-28] MEDS: nadoloL 20 MG TABLET PO (20:43)
[2020-12-28] MEDS: busPIRone HCL 5 MG TABLET 15 MG PO (20:43)
[2020-12-28 21:44] LABS: Glucose Point of Care 132 mg/dl (65-105)
[2020-12-28] MEDS: MORPHINE SULFATE (*CRX) 4 MG/ML INJ IV PUSH (22:42)
[2020-12-29] MEDS: ALBUMIN HUMAN 25% 25 GM/100 ML 200 ML IVPB ×3 (05:09→23:08)
[2020-12-29 06:00] VITALS: BP 124/46; PULSE 76; RESP 20; TEMP 36.5; O2SAT 91
[2020-12-29 06:42] LABS: Basophils Percent Auto 0.3 % (0.2-1.2); Eosinophils Absolute Auto 0.1 K/mm3 (0-0.3); Eosinophils Percent Auto 2.7 % (0-4.4); Hematocrit 23.5 % (37.0-47.0); Hemoglobin 7.4 g/dL (12.0-15.0); Immature Granulocyte Absolute 0.01 K/mm3 (0.00-0.031); Immature Granulocyte Percent A 0.3 % (0-0.5); Immature Platelet Fraction Pct 3.8 % (0.9-11.2); Lymphocytes Absolute Auto 0.61 K/mm3 (0.9-3.2); Lymphocytes Percent Auto 16.4 % (18.3-44.2); Mean Corpuscular HGB Conc 31.5 g/dl (32-36); Mean Corpuscular Hemoglobin 29.6 pg (26-34); Mean Platelet Volume 10.4 fl (7.4-10.4); Monocytes Absolute Auto 0.6 K/mm3 (0.1-0.6); Monocytes Percent Auto 16.1 % (2.6-8.5); Neutrophils Absolute Auto 2.4 K/mm3 (1.3-6.7); Neutrophils Percent Auto 64.2 % (45.5-73.1); Platelet Count Result 65 k/mm3 (150-375); Red Cell Distribution Width 15.3 % (11.5-14.5); White Blood Count 3.7 K/mm3 (4.5-10.0)
[2020-12-29 07:01] LABS: Anion Gap 8 mmol/L (8-16); Blood Urea Nitrogen 24 mg/dL (7-17); Calcium 9.2 mg/dL (8.4-10.2); Carbon Dioxide 31 mmol/L (22-30); Chloride 105 mmol/L (98-107); Estimated CRCL calculation 44 ml/min; Estimated Glomerular Filt Rate 40; Glucose 76 mg/dL (65-105); Magnesium 1.6 mg/dL (1.6-2.3); Phosphorus 2.8 mg/dL (2.5-4.5); Potassium 2.6 mmol/L (3.4-5.0); Sodium 144 mmol/L (137-145)
[2020-12-29 08:11] LABS: Glucose Point of Care 69 mg/dl (65-105)
[2020-12-29] MEDS: FUROSEMIDE INJ 40 MG/4 ML VIAL IV PUSH ×2 (08:58→17:43)
[2020-12-29] MEDS: busPIRone HCL 5 MG TABLET 15 MG PO ×2 (08:58→21:15)
[2020-12-29] MEDS: FERROUS SULFATE DRIED 142 MG TABCR PO (08:59)
[2020-12-29] MEDS: SERTRALINE HCL 50 MG TABLET 100 MG PO (08:59)
[2020-12-29] MEDS: SPIRONOLACTONE 50 MG TABLET 100 MG PO (08:59)
[2020-12-29] MEDS: LACTULOSE 20 GM/30 ML UDC PO (08:59)
[2020-12-29] MEDS: rifAXIMin 550 MG TABLET PO ×2 (08:59→21:15)
[2020-12-29] MEDS: POTASSIUM CHLORIDE 20 MEQ TABLET 40 MEQ PO (09:04)
[2020-12-29 12:08] LABS: Glucose Point of Care 194 mg/dl (65-105)
--- NOTE | 2020-12-29 15:09 | PM.IMPN ---
Progress Note: A&P Assessment and Plan (1) Acute congestive heart failure: Code(s): I50.9 - Heart failure, unspecified Status: Acute Assessment and Plan: Unclear etiology, obtained echo as an outpatient (2) Chronic respiratory failure with hypoxia: Code(s): J96.11 - Chronic respiratory failure with hypoxia Status: Acute Assessment and Plan: Plan for thoracentesis Case was discussed with Dr. NILSON rico, who agreed that the effusion is related to her cirrhosis most likely (3) Abdominal ascites: Qualifiers: Ascites type: other type Qualified Code(s): R18.8 - Other ascites Code(s): R18.8 - Other ascites Status: Acute Assessment and Plan: Plan for paracentesis Consult GI Follow up with [facility] hepatology as an outpatient (4) Pleural effusion: Code(s): J90 - Pleural effusion, not elsewhere classified Status: Acute Assessment and Plan: Thoracentesis, plan to check pH, cell count, cultures, LDH Discussed with Dr. Nilson rico (5) Weakness: Code(s): R53.1 - Weakness Status: Acute Assessment and Plan: PT and OT (6) Hypoxia: Code(s): R09.02 - Hypoxemia Status: Acute Assessment and Plan: Home O2 assessment Treat pleural effusion (7) Hypokalemia: Code(s): E87.6 - Hypokalemia Status: Acute Assessment and Plan: Replace potassium Monitor electrolytes (8) Anemia: Code(s): D64.9 - Anemia, unspecified Status: Acute Assessment and Plan: Monitor hemoglobin Subjective Date/time seen: 12/29/20 15:09 Interval history: Patient is resting comfortably no active complaints at this time, she still on oxygen supplement via nasal cannula. Exam Const: General: cooperative and no acute distress HENMT: Head: normal to inspection Eyes: General: appearance normal, both eyes and all related structures Neck: Neck: normal visual inspection Chest: Chest palpation & inspection: normal inspection of the chest Resp: Effort & Inspection: normal respiratory effort Cardio: Jugular venous distension: no JVD Rate: regular rate GI: Inspection: normal to inspection and distended Objective Data Vital Signs Vital Signs: Vital Signs - 24 hr 12/28/20 20:00 12/28/20 20:20 12/28/20 20:43 Temperature Pulse Rate 70 Respiratory Rate Blood Pressure Pulse Oximetry 100 100 12/28/20 20:50 12/28/20 22:00 12/29/20 06:00 Temperature 97 F L 97.7 F Pulse Rate 69 76 Respiratory Rate 20 20 Blood Pressure 122/40 L 124/46 L Pulse Oximetry 93 100 91 Intake/Output Intake/Output: Intake & Output 12/26/20 12/27/20 12/28/20 12/29/20 23:59 23:59 23:59 23:59 Intake Total 491 610 Output Total 7000 600 Balance -6509 10 Meds/Results Medications: Active Medications Generic Name Dose Route Start Last Admin Trade Name Freq PRN Reason Stop Dose Admin Buspirone HCl 15 mg 12/28/20 09:00 12/29/20 08:58 Buspirone Hcl 5 Mg Tablet PO 15 mg Q12HR [facility] Administration Ergocalciferol 50,000 unit 12/31/20 09:00 Ergocalciferol 50,000 Unit Capsule PO Cutler@0900 [facility]ANNER Ferrous Sulfate 142 mg 12/28/20 08:00 12/29/20 08:59 Ferrous Sulfate Dried 142 Mg Tabcr PO 142 mg DAILY@0800 [facility] Administration Furosemide 40 mg 12/28/20 09:00 12/29/20 08:58 Furosemide Inj 40 Mg/4 Ml Vial IV PUSH 40 mg BID TANNER Administration Albumin Human 200 mls @ 60 mls/hr 12/28/20 06:00 12/29/20 05:09 Albutein IVPB 60 mls/hr Q8HR [facility] Administration Lactulose 20 gm 12/28/20 09:00 12/29/20 08:59 Lactulose 20 Gm/30 Ml Udc PO 20 gm QAM TANNER Administration Morphine Sulfate 4 mg 12/28/20 01:37 12/28/20 22:42 Morphine Sulfate (*Crx) 4 Mg/Ml Inj IV PUSH 4 mg Q2H PRN Administration Pain Rated 7-10 Nadolol 20 mg 12/28/20 21:00 12/28/20 20:43 Nadolol 20 Mg Tablet PO 20 mg H
--- NOTE | 2020-12-29 15:30 | PCRCNOTE ---
HOME O2 EVAL NOT DONE, PT GOING TO [facility] UPON DISCHARGE
[2020-12-29 15:47] VITALS: BP 146/48; PULSE 74; RESP 16; TEMP 36.3; O2SAT 93
[2020-12-29 17:08] LABS: Glucose Point of Care 163 mg/dl (65-105)
[2020-12-29 20:00] VITALS: PULSE 81; O2SAT 92
[2020-12-29 21:14] VITALS: PULSE 82
[2020-12-29] MEDS: nadoloL 20 MG TABLET PO (21:14)
[2020-12-29 21:44] VITALS: BP 156/56; PULSE 79; RESP 20; TEMP 35.9; O2SAT 91
[2020-12-29 22:37] LABS: Alveolar/Arterial O2 Gradient 154.9 mmHg; Base Excess ABG 5.8 mEq/l (+/-2.0); Carboxyhemoglobin 0.3 % THb (0-2.0); Fractional Inspired Oxygen 40 %; HCO3 ABG 32.3 mEq/l (22.0-26.0); Methemoglobin ABG 0.5 %THb (0-1.5); Oxygen Content ABG 12.1 %vol (16.0-22.0); Oxygen Saturation ABG 91.1 % (95.0-100.0); Oxyhemoglobin 90.7 % THb (90.0-100.0); PCO2 ABG 57.9 mmHg (35.0-45.0); PO2 ABG 63.7 mmHg (80.0-100.0); PO2 FiO2 Ratio Arterial Blood 1.59 %; Reduced Hemoglobin 8.5 %THb (0-5.0); Total Hemoglobin 9.4 g/dL (12.0-18.0); pH ABG 7.364 (7.350-7.450)
[2020-12-29 22:38] LABS: Device NASAL CANNULA; Site Drawn RIGHT BRACHIAL
[2020-12-29 22:41] VITALS: O2SAT 92
[2020-12-29 22:56] LABS: Hematocrit 26.9 % (37.0-47.0); Hemoglobin 8.3 g/dL (12.0-15.0)
[2020-12-29 23:09] LABS: Anion Gap 13 mmol/L (8-16); Blood Urea Nitrogen 25 mg/dL (7-17); Calcium 9.8 mg/dL (8.4-10.2); Carbon Dioxide 29 mmol/L (22-30); Chloride 102 mmol/L (98-107); Estimated CRCL calculation 47 ml/min; Estimated Glomerular Filt Rate 44; Glucose 156 mg/dL (65-105); Magnesium 1.6 mg/dL (1.6-2.3); Potassium 3.3 mmol/L (3.4-5.0); Sodium 144 mmol/L (137-145)
[2020-12-29 23:18] LABS: NT Pro B Type Natriuretic Pept 12600 pg/mL (5-100)
[2020-12-30] VITALS (29 sets, daily range): BP systolic 108–175; BP diastolic 40–96; PULSE 65–82; RESP 20–34; TEMP 35.9–36.8; O2SAT 92–100
--- NOTE | 2020-12-30 02:03 | PC.NURSE ---
This patient, Shweta Russell, was transferred to [IMU ] on 12/30/20 at 0150. Personal belongings sent with patient. Report given to [Tatyana ]. Appropriate documentation sent with patient.
--- NOTE | 2020-12-30 02:17 | PC.NURSE ---
This patient, hSweta Russell, was received from [facility] on 12/30/20 at 0156. Patient/family oriented to unit policies and routines
[2020-12-30 05:44] LABS: Basophils Percent Auto 0.4 % (0.2-1.2); Eosinophils Absolute Auto 0.1 K/mm3 (0-0.3); Eosinophils Percent Auto 0.9 % (0-4.4); Hematocrit 24.6 % (37.0-47.0); Hemoglobin 7.8 g/dL (12.0-15.0); Immature Granulocyte Absolute 0.03 K/mm3 (0.00-0.031); Immature Granulocyte Percent A 0.6 % (0-0.5); Lymphocytes Absolute Auto 0.59 K/mm3 (0.9-3.2); Lymphocytes Percent Auto 10.9 % (18.3-44.2); Mean Corpuscular HGB Conc 31.7 g/dl (32-36); Mean Corpuscular Hemoglobin 30.4 pg (26-34); Mean Corpuscular Volume 95.7 fl (80-100); Mean Platelet Volume 10.6 fl (7.4-10.4); Monocytes Absolute Auto 0.7 K/mm3 (0.1-0.6); Monocytes Percent Auto 13.3 % (2.6-8.5); Neutrophils Percent Auto 73.9 % (45.5-73.1); Platelet Count Result 60 k/mm3 (150-375); Red Blood Count 2.57 M/mm3 (4.2-5.4); Red Cell Distribution Width 15.7 % (11.5-14.5); White Blood Count 5.4 K/mm3 (4.5-10.0)
[2020-12-30] MEDS: ALBUMIN HUMAN 25% 25 GM/100 ML 200 ML IVPB (05:57)
[2020-12-30 06:20] LABS: Anion Gap 13 mmol/L (8-16); Blood Urea Nitrogen 27 mg/dL (7-17); Calcium 9.8 mg/dL (8.4-10.2); Carbon Dioxide 30 mmol/L (22-30); Chloride 102 mmol/L (98-107); Estimated CRCL calculation 44 ml/min; Estimated Glomerular Filt Rate 40; Glucose 145 mg/dL (65-105); Magnesium 1.6 mg/dL (1.6-2.3); Phosphorus 2.7 mg/dL (2.5-4.5); Potassium 3.3 mmol/L (3.4-5.0); Sodium 145 mmol/L (137-145)
[2020-12-30 08:21] LABS: Glucose Point of Care 139 mg/dl (65-105)
[2020-12-30 08:32] LABS: Base Excess ABG 4.1 mEq/l (+/-2.0); Fractional Inspired Oxygen 50 %; HCO3 ABG 31.1 mEq/l (22.0-26.0); Oxyhemoglobin 79.7 % THb (90.0-100.0); PO2 FiO2 Ratio Arterial Blood 0.95 %; Total Hemoglobin 9.8 g/dL (12.0-18.0); pH ABG 7.329 (7.350-7.450)
--- NOTE | 2020-12-30 08:32 | PCPTNOTE ---
PT will hold treatment at this time due to patient transfer from medical floor to IMU due to change in medical status. Will hold PT until patient is appropriate to resume therapy.
[2020-12-30 08:35] LABS: Device NON-INVASIVE VENT; Modified Allen's Test Pass; Non-Invasive Expiratory Pressure 6 CMH2O; Non-Invasive Inspiratory Pressure 12 CMH2O; Non-Invasive Vent Rate 4 /MIN; Oxygen Saturation ABG 79.4 % (95.0-100.0); PCO2 ABG 60.4 mmHg (35.0-45.0); PO2 ABG 47.6 mmHg (80.0-100.0); Site Drawn RIGHT RADIAL
[2020-12-30] MEDS: FUROSEMIDE INJ 40 MG/4 ML VIAL IV PUSH ×2 (09:22→16:21)
--- NOTE | 2020-12-30 09:34 | PM.IMPN ---
Progress Note: A&P Assessment and Plan (1) Anemia: Code(s): D64.9 - Anemia, unspecified Status: Acute Assessment and Plan: Monitor hemoglobin (2) Hypokalemia: Code(s): E87.6 - Hypokalemia Status: Acute Assessment and Plan: Replace potassium Monitor electrolytes (3) Hypoxia: Code(s): R09.02 - Hypoxemia Status: Acute Assessment and Plan: Home O2 assessment Treat pleural effusion (4) Cirrhosis: Code(s): K74.60 - Unspecified cirrhosis of liver Status: Acute Assessment and Plan: Plan to discuss the case with the hepatology team at [facility], and consider transfer to [facility]. (5) Acute congestive heart failure: Code(s): I50.9 - Heart failure, unspecified Status: Acute Assessment and Plan: Obtained echo if patient stated the hospital (6) Chronic respiratory failure with hypoxia: Code(s): J96.11 - Chronic respiratory failure with hypoxia Status: Acute Assessment and Plan: Patient had thoracentesis, but last night her respiratory status deteriorated, and to consult Pulmonary, continue BiPAP support, and consider transferring the patient to [facility] (7) Abdominal ascites: Qualifiers: Ascites type: other type Qualified Code(s): R18.8 - Other ascites Code(s): R18.8 - Other ascites Status: Acute Assessment and Plan: paracentesis 12/28 Consult GI Follow up with [facility] hepatology (8) Pleural effusion: Code(s): J90 - Pleural effusion, not elsewhere classified Status: Acute Assessment and Plan: Thoracentesis, pH, cell count, cultures, LDH Discussed with Dr. Nilson rico (9) Weakness: Code(s): R53.1 - Weakness Status: Acute Assessment and Plan: Manage acute on chronic liver failure, possible infections, obtain PT OT when patient more stable Subjective Date/time seen: 12/30/20 09:34 Interval history: Patient had respiratory distress last night, she was transferred to [facility], and placed on BiPAP, I discussed the case this morning with Dr.Walter rico, who suggested transferring the patient to [facility] for further evaluation and management of her liver failure by the hepatology team, plan to start patient on antibiotics to cover SBP and pneumonia. Patient had paracentesis and thoracentesis, although test were ordered on the fluids pH was only past that resulted, cell count, protein, LDH, cultures, are not available of the fluids that was drained. PH of the pleural effusion was 7.42 Plan to start patient on empiric antibiotics and contact [facility], trying to arrange for patient to be transferred. Patient on BiPAP, abdominal distension improved after paracentesis, patient denies any pain. Exam Const: General: cooperative, no acute distress and uncomfortable HENMT: Head: normal to inspection Eyes: General: appearance normal, both eyes and all related structures Neck: Neck: normal visual inspection and no JVD Chest: Chest palpation & inspection: normal inspection of the chest Resp: Other: Coarse breath sound, patient on BiPAP Cardio: Jugular venous distension: no JVD Rate: regular rate GI: Inspection: normal to inspection and non-distended GI Palp: No Tenderness to palpation present (GI) Objective Data Vital Signs Vital Signs: Vital Signs - 24 hr 12/29/20 15:47 12/29/20 20:00 12/29/20 21:14 Temperature 97.3 F L Pulse Rate 74 81 82 Respiratory Rate 16 Blood Pressure 146/48 H Pulse Oximetry 93 92 12/29/20 21:44 12/29/20 22:41 12/30/20 00:00 Temperature 96.6 F L Pulse Rate 79 75 Respiratory Rate 20 Blood Pressure 156/56 H Pulse Oximetry 91 92 12/30/20 01:56 12/30/20 02:00 12/30/20 02:19 Temperature 98 F Pulse Rate 72 77 Respiratory Rate 27 H
--- NOTE | 2020-12-30 10:02 | WPDPN ---
Objective Data Vital Signs Vital Signs: Vital Signs - 24 hr 12/29/20 15:47 12/29/20 20:00 12/29/20 21:14 Temperature 97.3 F L Pulse Rate 74 81 82 Respiratory Rate 16 Blood Pressure 146/48 H Pulse Oximetry 93 92 12/29/20 21:44 12/29/20 22:41 12/30/20 00:00 Temperature 96.6 F L Pulse Rate 79 75 Respiratory Rate 20 Blood Pressure 156/56 H Pulse Oximetry 91 92 12/30/20 01:56 12/30/20 02:00 12/30/20 02:19 Temperature 98 F Pulse Rate 72 77 Respiratory Rate 27 H Blood Pressure 128/50 L Pulse Oximetry 98 97 12/30/20 02:31 12/30/20 03:28 12/30/20 04:00 Temperature 98.2 F Pulse Rate 73 76 76 Respiratory Rate 25 H 24 H Blood Pressure 145/54 H Pulse Oximetry 97 99 97 12/30/20 06:00 12/30/20 06:13 12/30/20 08:00 Temperature 97.9 F Pulse Rate 76 70 78 Respiratory Rate 22 H 20 Blood Pressure 175/96 H Pulse Oximetry 97 93 12/30/20 08:07 12/30/20 08:40 Temperature Pulse Rate 78 82 Respiratory Rate 34 H Blood Pressure Pulse Oximetry 95 92 Intake/Output Intake/Output: Intake & Output 12/27/20 12/28/20 12/29/20 12/30/20 23:59 23:59 23:59 23:59 Intake Total 491 1130 400 Output Total 7000 1600 750 Balance -4719 -470 -350 Meds/Results Medications: Active Medications Generic Name Dose Route Start Last Admin Trade Name Freq PRN Reason Stop Dose Admin Buspirone HCl 15 mg 12/28/20 09:00 12/29/20 21:15 Buspirone Hcl 5 Mg Tablet PO 15 mg Q12HR [facility] Administration Ergocalciferol 50,000 unit 12/31/20 09:00 Ergocalciferol 50,000 Unit Capsule PO Cutler@0900 [facility] Ferrous Sulfate 142 mg 12/28/20 08:00 12/30/20 09:30 Ferrous Sulfate Dried 142 Mg Tabcr PO Not Given DAILY@0800 [facility] Furosemide 40 mg 12/28/20 09:00 12/30/20 09:22 Furosemide Inj 40 Mg/4 Ml Vial IV PUSH 40 mg BID TANNER Administration Albumin Human 200 mls @ 60 mls/hr 12/28/20 06:00 12/30/20 08:15 Albutein IVPB Infused Q8HR [facility] Infusion Ceftriaxone Sodium 2 gm in 100 mls @ 200 mls/hr 12/30/20 10:00 Rocephin 2 Gm/D5w 100 Ml IVPB Q24H [facility] Levofloxacin/Dextrose 500 mg in 100 mls @ 100 mls/hr 12/30/20 09:30 Levaquin 500 Mg/D5w 100 Ml IVPB Q24H [facility] Potassium Chloride 20 meq/ 260 mls @ 130 mls/hr 12/30/20 09:40 Dextrose IVPB 12/30/20 11:39 ONCE ONE Levofloxacin/Dextrose 500 mg in 100 mls @ 100 mls/hr 12/30/20 09:55 Levaquin 500 Mg/D5w 100 Ml IVPB 12/30/20 10:54 ONCE ONE Vancomycin HCl 1,500 mg in 500 mls @ 333.333 mls/hr 12/30/20 10:00 Vancomycin 1,500 Mg/D5w 500 Ml IVPB Q24H [facility] Lactulose 20 gm 12/28/20 09:00 12/29/20 08:59 Lactulose 20 Gm/30 Ml Udc PO 20 gm QAM [facility]ANNER Administration Morphine Sulfate 4 mg 12/28/20 01:37 12/28/20 22:42 Morphine Sulfate (*Crx) 4 Mg/Ml Inj IV PUSH 4 mg Q2H PRN Administration Pain Rated 7-10 Nadolol 20 mg 12/28/20 21:00 12/29/20 21:14 Nadolol 20 Mg Tablet PO 20 mg HS [facility]ANNER Administration Ondansetron HCl 4 mg 12/28/20 01:37 Ondansetron Inj 4 Mg/2 Ml Vial IV PUSH Q4H PRN Nausea Rifaximin 550 mg 12/28/20 09:00 12/29/20 21:15 Rifaximin 550 Mg Tablet PO 550 mg Q12HR [facility] Administration Sertraline HCl 100 mg 12/28/20 09:00 12/29/20 08:59 Sertraline Hcl 50 Mg Tablet PO 100 mg DAILY [facility] Administration Spironolactone 100 mg 12/29/20 09:00 12/29/20 08:59 Spironolactone 50 Mg Tablet PO 100 mg DAILY [facility] Administration Vancomycin HCl 1 each 12/30/20 09:30 Vancomycin Pharmacist To Dose IVPB PER PROTOCOL [facility] Radiology Results: ITS Impressions Paracentesis Ultrasound 12/28/20 12:07 IMPRESSION: 1. Successful ultrasound-guided paracentesis yielding 5000 mL of cloudy yellow fluid. Thoracentesis Ultrasound 12/28/20 12:07 IMPRESSION: 1. Successful ultrasound-guided thoracentesis yielding 1000 mL of cloudy reddish fluid. Chest X-Ray 12/30/20 09:09 Impression:
[2020-12-30 10:16] LABS: Alanine Aminotransferase 11 U/L (4-35); Albumin Level 4.8 g/dL (3.5-5.1); Alkaline Phosphatase 54 U/L (38-126); Anion Gap 16 mmol/L (8-16); Aspartate Amino Transferase 32 U/L (14-36); Blood Urea Nitrogen 31 mg/dL (7-17); Calcium 9.5 mg/dL (8.4-10.2); Carbon Dioxide 25 mmol/L (22-30); Chloride 103 mmol/L (98-107); Estimated CRCL calculation 44 ml/min; Estimated Glomerular Filt Rate 40; Glucose 137 mg/dL (65-105); Potassium 3.8 mmol/L (3.4-5.0); Sodium 144 mmol/L (137-145)
--- NOTE | 2020-12-30 10:37 | PC.NURSE ---
This patient, Shweta Russell, was received from [ imu ] on 12/30/20 at 1037. Patient/family oriented to unit policies and routines
[2020-12-30 11:09] LABS: Ammonia 41 umol/L (9-30)
--- NOTE | 2020-12-30 11:17 | PC.NURSE ---
1030 orders to transfer to ICU- report given to Eliazar RN- pt moved via bed with continuous BIPAP - accompanied by RT/ RN; and son notified of transfer to ICU
--- NOTE | 2020-12-30 11:26 | WPDCNINT ---
Assessment and Plan Assessment and plan (1) Acute hypercapnic respiratory failure: Code(s): J96.02 - Acute respiratory failure with hypercapnia Status: Acute Assessment and Plan: Acute hypercapnic respiratory failure likely related to pneumonia and or volume overload -patient currently on AVAPS per pulmonology -will repeat ABG at noon -wean FiO2 as tolerated, to maintain O2 sats greater than 92% -patient started on ceftriaxone, levofloxacin and vancomycin -appreciate pulmonology following the patient -chest x-ray and CT scan of the chest: Showed significant progression of extensive patchy bilateral airspace consolidation most likely pneumonia. Bilateral pleural effusion left greater than right. Ill-defined bilateral breast nodules/masses. Recommend correlation with mammography/breast ultrasound when the patient's condition permits. Cardiomegaly. Cirrhosis with splenomegaly. Probable portal hypertension. Large amount of ascites. (2) Encephalopathy: Code(s): G93.40 - Encephalopathy, unspecified Status: Acute Assessment and Plan: Patient encephalopathic likely related to hypercapnia, hypoxia, elevated ammonia levels due to cirrhosis - continue AVAPS for now, repeat ABGs - continue to monitor mental status (3) Cirrhosis: Code(s): K74.60 - Unspecified cirrhosis of liver Status: Acute Assessment and Plan: non alcoholic cirrhosis - patient follows at [facility] hepatology group, - Hospitalist trying to arrange for transfer - continue nadolol - continue is Lasix and spironolactone - continue albumin (4) Abdominal ascites: Qualifiers: Ascites type: other type Qualified Code(s): R18.8 - Other ascites Code(s): R18.8 - Other ascites Status: Acute Assessment and Plan: large amount of ascites present on CT scan of the abdomen and pelvis this morning. Patient also had cirrhosis with splenomegaly and possible portal hypertension - 12/28/2020: paracentesis performed with removal of 5000 mL of fluid by ultrasound guidance - GI already following the patient (5) Pleural effusion: Code(s): J90 - Pleural effusion, not elsewhere classified Status: Acute Assessment and Plan: patient had 1 L left pleural effusion drained on 12/30/2020 - redevelopment of pleural effusion left greater than right as seen on the CT scan of the chest and abdomen (6) Anemia: Code(s): D64.9 - Anemia, unspecified Status: Acute Assessment and Plan: possible anemia chronic disease - continue to monitor hemoglobin - will chec stools for Hemoccult (7) Diabetes: Code(s): E11.9 - Type 2 diabetes mellitus without complications Status: Acute Assessment and Plan: continue Accu-Cheks and sliding scale insulin (8) Thrombocytopenia: Code(s): D69.6 - Thrombocytopenia, unspecified Status: Acute Assessment and Plan: thrombocytopenia likely related to liver dysfunction. splenomegaly on CT scan of the abdomen which could be contributingd (9) Suspected 2019 novel coronavirus infection: Code(s): Z20.822 - Contact with and (suspected) exposure to COVID-19 Status: Acute Assessment and Plan: given rapid progression of diffuse infiltrates on her CT chest and chest x-ray, will swallow over for SARS-CoV-2 PCR. - place patient on droplet, airborne, contact isolation /precautions according the patient has received both doses of the COVID-19 vaccine approximately 3 months back (10) DVT prophylaxis: Code(s): Z29.9 - Encounter for prophylactic measures, unspecified Status: Acute Assessment and Plan: no chemical DVT prophylaxis given thrombocytopenia, will place SCDs Additional Plan discussed with patient's the ICU and updated with patient's condition plan of care. I did did tell him that we would repeat another blood gas at 12 noon and o
[2020-12-30 12:06] LABS: Alveolar/Arterial O2 Gradient 564.2 mmHg; Base Excess ABG 4.1 mEq/l (+/-2.0); Fractional Inspired Oxygen 100 %; HCO3 ABG 31.3 mEq/l (22.0-26.0); Oxygen Saturation ABG 95.4 % (95.0-100.0); Oxyhemoglobin 93.9 % THb (90.0-100.0); PO2 ABG 85.8 mmHg (80.0-100.0); PO2 FiO2 Ratio Arterial Blood 0.86 %; pH ABG 7.314 (7.350-7.450)
[2020-12-30 12:08] LABS: Modified Allen's Test Pass; Non-Invasive Expiratory Pressure 8 CMH2O; Non-Invasive Vent Rate 24 /MIN; Site Drawn RIGHT RADIAL
[2020-12-30 12:10] LABS: Device NON-INVASIVE VENT
[2020-12-30] MEDS: levoFLOXacin 500 MG/D5W 100 ML 500 MG/100 ML BAG 100 MG IVPB (12:45)
[2020-12-30] MEDS: ALBUMIN HUMAN 25% 12.5 GM/50ML 50 ML IVPB ×3 (13:30→23:49)
[2020-12-30] MEDS: DEXAMETHASONE SOD PHOS INJ 4 MG/ML VIAL 6 MG IV PUSH (13:35)
[2020-12-30 13:42] LABS: Glucose Point of Care 197 mg/dl (65-105)
--- NOTE | 2020-12-30 13:56 | PM.CNPUL ---
Assessment and Plan Assessment and plan (1) Respiratory failure with hypoxia and hypercapnia: Code(s): J96.91 - Respiratory failure, unspecified with hypoxia; J96.92 - Respiratory failure, unspecified with hypercapnia Status: Acute Assessment and Plan: Patient with a history of cirrhosis, history of alcohol use, chronic hypoxemic respiratory failure on 3 L nasal cannula prior to admission presents now with massive ascites, bilateral pleural effusions, hypercarbic and hypoxemic respiratory failure. Etiology includes infection (bacterial or viral pneumonia and or SBP), COVID pneumonia, aspiration, ARDS. At this time patient appears more comfortable on maximal noninvasive ventilatory support with an AVAPS mode with a rate of 24, tidal volume 550, EPAP 8, minimal inspiratory pressure 9, maximal inspiratory pressure 25, inspiratory time 1, rise 1 and 100%. She remains tachypneic and lethargic and may require intubation. Agree with empiric coverage with vancomycin, ceftriaxone and Levaquin for bacterial infection. Agree with dexamethasone 6 mg IV while awaiting COVID testing. Of she test positive for COVID recomend remdesivir and convalescent plasma. Patient has a complicated history of cirrhosis with previous paracentesis and is followed at [facility] liver [facility]. Given patient's massive ascites, previous large volume paracentesis and now respiratory failure I recommended she be transferred to a higher level of care facility and spoke I spoke with Dr. Robles who will refer her to [facility]. Discussed with Manager Of Community Relations, Dr. Mohamud. Will follow with you. History of Present Illness History of Present Illness Consult date: 12/30/20 Requesting physician: Thanh Robles MD Reason for consult: hypoxemia Chief complaint: Ascites, pleural effusion Narrative: 75-year-old with a history of cirrhosis, history of alcohol use who is followed at [facility] liver [facility], diabetes, Hypoxic respiratory failure on 3 L nasal cannula, who presented to the emergency room on 12/28 with shortness of breath. patient was found to have tense ascites and a large left greater than right pleural effusion. On 12/29 patient underwent paracentesis of 5 L (cloudy yellow) and a thoracentesis of 1000 mL (cloudy reddish). patient shortness of breath improved and her left pleural effusion improved. Pleural fluid pH was 7.42 and there were no organisms or white blood cells seen on the Gram stain. All other pleural fluid tests are pending at this time. On 12/29 patient became hypoxic and was started on BiPAP and transferred to the intermediate unit. I was called on 12/30 4 patient with a blood gas of 7.33/60/48 on 50% FiO2. 12/30 Patient was minimally responsive on a BiPAP set rate of for breathing 32 times a minute with pressures 12/6 and 100% FiO2 with saturations 94%. Blood cultures were drawn. Patient was emperically started on vancomycin, ceftriaxone, and Levaquin for possible pneumonia and or SBP. Her tidal volumes were approximately 400 on the settings. I changed the patient to an AVAPS mode with a rate of 24, tidal volume 550, EPAP 8, minimal inspiratory pressure 9, maximal inspiratory pressure 25, inspiratory time 1, rise 1 and 100%. Patient was tachypneic and minimally responsive and I agree with transfer to the ICU. Patient had a CT scan of the head which was without acute pathology and a CT scan of the chest abdomen pelvis which demonstrated diffuse confluent multifocal infiltrates in the lung, left greater than right pleural effusions cardiomegaly, cirrhosis with splenomegaly and a large amount of ascites. Patient was empirically started on dexamethasone 6 mg IV q.day and a COVID test was sent. Of note patient had both COVID vaccines. Patient Was more awake in the ICU but still confused and had a repeat blood gas on the above-mentioned AVAPS with a pH of 7.31/63/86. ammonia 41 Review of S
[2020-12-30 14:47] LABS: Alveolar/Arterial O2 Gradient 173.4 mmHg; Base Excess ABG 3.2 mEq/l (+/-2.0); Fractional Inspired Oxygen 40 %; Modified Allen's Test Pass; Oxygen Content ABG 10.7 %vol (16.0-22.0); Oxygen Saturation ABG 91.7 % (95.0-100.0); Oxyhemoglobin 90.4 % THb (90.0-100.0); PCO2 ABG 44.2 mmHg (35.0-45.0); PO2 FiO2 Ratio Arterial Blood 1.52 %; Site Drawn RIGHT RADIAL; Total Hemoglobin 8.4 g/dL (12.0-18.0)
[2020-12-30 14:50] LABS: Arterial Blood Gas PEEP 8 cmH2O; Arterial Blood Gas Tidal Volume 550 ml; Arterial Blood Gas Ventilator rate 24 /MIN; Device NON-INVASIVE VENT
--- NOTE | 2020-12-30 16:28 | PCOTNOTE ---
Due to change in medical status pt was transferred from IMU to ICU. Per HOSPICE MANAGER, pt is to not be seen from therapy until doctor says pt is medically appropriate for continued therapy. LANDERS/L gave OTR pt's cardex for OTR to reevaluate pt when medically able to.
[2020-12-30 17:43] LABS: Glucose Point of Care 227 mg/dl (65-105)
[2020-12-30] MEDS: INSULIN ASPART (*BKC) 100 UNITS/ML SUB-Q (18:04)
[2020-12-31] VITALS (23 sets, daily range): BP systolic 115–164; BP diastolic 44–89; PULSE 60–70; RESP 20–30; TEMP 36–36.7; O2SAT 93–100
[2020-12-31] LABS: Glucose Point of Care 194 mg/dl (65-105)
[2020-12-31] MEDS: ALBUMIN HUMAN 25% 12.5 GM/50ML 50 ML IVPB ×3 (05:38→17:13)
[2020-12-31 05:46] LABS: Hematocrit 22.5 % (37.0-47.0); Hemoglobin 7.2 g/dL (12.0-15.0); Mean Corpuscular Hemoglobin 30.1 pg (26-34); Mean Corpuscular Volume 94.1 fl (80-100); Mean Platelet Volume 11.2 fl (7.4-10.4); Platelet Count Result 59 k/mm3 (150-375); Red Blood Count 2.39 M/mm3 (4.2-5.4); Red Cell Distribution Width 15.7 % (11.5-14.5); White Blood Count 5.3 K/mm3 (4.5-10.0)
[2020-12-31 05:51] LABS: Ammonia 10 umol/L (9-30)
[2020-12-31 05:53] LABS: INR 1.8; Prothrombin Time 21.8 Seconds (11.1-14.7)
[2020-12-31 05:54] LABS: Partial Thromboplastin Time 33.6 SECONDS (22.3-36.8)
[2020-12-31 06:02] LABS: Lactic Acid Reflex 1.4 mmol/L (0.7-2.1)
[2020-12-31 06:09] LABS: Alanine Aminotransferase 12 U/L (4-35); Alkaline Phosphatase 41 U/L (38-126); Anion Gap 11 mmol/L (8-16); Aspartate Amino Transferase 27 U/L (14-36); Bilirubin,Total 2.5 mg/dL (0.2-1.3); Blood Urea Nitrogen 45 mg/dL (7-17); CRP 8.5 mg/dL (<1.0); Carbon Dioxide 28 mmol/L (22-30); Chloride 102 mmol/L (98-107); Estimated CRCL calculation 25 ml/min; Estimated Glomerular Filt Rate 28; Glucose 170 mg/dL (65-105); Magnesium 1.5 mg/dL (1.6-2.3); Phosphorus 2.2 mg/dL (2.5-4.5); Potassium 3.1 mmol/L (3.4-5.0); Sodium 141 mmol/L (137-145)
[2020-12-31 07:17] LABS: Hemoglobin A1C 5.5 % (<5.7)
[2020-12-31 07:55] LABS: Alveolar/Arterial O2 Gradient 171.6 mmHg; Base Excess ABG 3.3 mEq/l (+/-2.0); Fractional Inspired Oxygen 40 %; Oxygen Content ABG 10.8 %vol (16.0-22.0); Oxygen Saturation ABG 95.4 % (95.0-100.0); Oxyhemoglobin 92.9 % THb (90.0-100.0); PCO2 ABG 36.9 mmHg (35.0-45.0); PO2 ABG 71.2 mmHg (80.0-100.0); PO2 FiO2 Ratio Arterial Blood 1.78 %; Total Hemoglobin 8.2 g/dL (12.0-18.0); pH ABG 7.482 (7.350-7.450)
[2020-12-31 07:56] LABS: Modified Allen's Test Pass; Non-Invasive Expiratory Pressure 8 CMH2O; Non-Invasive Vent Rate 24 /MIN; Site Drawn LEFT RADIAL
[2020-12-31 07:57] LABS: Device NON-INVASIVE VENT
[2020-12-31] MEDS: DEXAMETHASONE SOD PHOS INJ 4 MG/ML VIAL 6 MG IV PUSH (08:19)
[2020-12-31] MEDS: TOLNAFTATE 1% POWDER 45 GM BTL 1 APPLIC TOPICAL ×2 (08:19→19:54)
[2020-12-31] MEDS: MAGNESIUM SULF 2 GM/WATER 50ML 2 GM/50 ML BAG IVPB (08:20)
[2020-12-31] MEDS: FERROUS SULFATE DRIED 142 MG TABCR PO (08:34)
[2020-12-31] MEDS: rifAXIMin 550 MG TABLET PO ×2 (08:35→19:55)
[2020-12-31] MEDS: LACTULOSE 20 GM/30 ML UDC PO (08:35)
[2020-12-31] MEDS: ERGOCALCIFEROL 50,000 UNIT CAPSULE 50000 UNITS PO (08:35)
[2020-12-31 09:35] LABS: Potassium Urine Random 45.7 meq/L
[2020-12-31 09:38] LABS: Eosinophil Urine None Seen % (None Seen)
--- NOTE | 2020-12-31 09:43 | WPDINTPN ---
Progress Note: A&P Assessment and Plan (1) Acute hypercapnic respiratory failure: Code(s): J96.02 - Acute respiratory failure with hypercapnia Status: Acute Assessment and Plan: Acute hypercapnic respiratory failure likely related to pneumonia and or volume overload -patient currently on AVAPS, 40% FiO2. - Chest x-ray and ABGs improving - continue ceftriaxone, levofloxacin and vancomycin -appreciate pulmonology following the patient - 12/30/20: CT scan of the chest: Showed significant progression of extensive patchy bilateral airspace consolidation most likely pneumonia. Bilateral pleural effusion left greater than right. Ill-defined bilateral breast nodules/masses. Recommend correlation with mammography/breast ultrasound when the patient's condition permits. Cardiomegaly. Cirrhosis with splenomegaly. Probable portal hypertension. Large amount of ascites. (2) Encephalopathy: Code(s): G93.40 - Encephalopathy, unspecified Status: Acute Assessment and Plan: Patient encephalopathic likely related to hypercapnia, hypoxia, elevated ammonia levels due to cirrhosis - continue AVAPS for now, - continue to monitor mental status - hypercapnia has improved, ammonia level is back to normal - patient is more awake this morning, answers most questions and follows simple commands spontaneously (3) Cirrhosis: Code(s): K74.60 - Unspecified cirrhosis of liver Status: Acute Assessment and Plan: non alcoholic cirrhosis - patient follows at [facility] hepatology group, - Hospitalist trying to arrange for transfer - continue nadolol - continue is Lasix and spironolactone - continue albumin (4) Abdominal ascites: Qualifiers: Ascites type: other type Qualified Code(s): R18.8 - Other ascites Code(s): R18.8 - Other ascites Status: Acute Assessment and Plan: large amount of ascites present on CT scan of the abdomen and pelvis this morning. Patient also had cirrhosis with splenomegaly and possible portal hypertension - continue albumin - cultures of ascitic fluid not growing any organisms - 12/28/2020: paracentesis performed with removal of 5000 mL of fluid by ultrasound guidance - GI already following the patient (5) Pleural effusion: Code(s): J90 - Pleural effusion, not elsewhere classified Status: Acute Assessment and Plan: patient had 1 L left pleural effusion drained on 12/30/2020 - redevelopment of pleural effusion left greater than right as seen on the CT scan of the chest and abdomen - culture of pleural fluid none growing any organism (6) Anemia: Code(s): D64.9 - Anemia, unspecified Status: Acute Assessment and Plan: possible anemia chronic disease - continue to monitor hemoglobin - will check stools for Hemoccult (7) Diabetes: Code(s): E11.9 - Type 2 diabetes mellitus without complications Status: Acute Assessment and Plan: continue Accu-Cheks and sliding scale insulin (8) Thrombocytopenia: Code(s): D69.6 - Thrombocytopenia, unspecified Status: Acute Assessment and Plan: thrombocytopenia likely related to liver dysfunction. splenomegaly on CT scan of the abdomen which could be contributing - acute bleeding noted, hemoglobin trending down - continue to monitor transfuse as required (9) Suspected 2019 novel coronavirus infection: Code(s): Z20.822 - Contact with and (suspected) exposure to COVID-19 Status: Acute Assessment and Plan: given rapid progression of diffuse infiltrates on her CT chest and chest x-ray, will swab herover for SARS-CoV-2 PCR. - place patient on droplet, airborne, contact isolation /precautions - started patient on dexamethasone according the patient has received both doses of the COVID-19 vaccine approximately 3 months back (10) DVT prophylaxis: Code(s): Z29.9 - Encounter
[2020-12-31 09:44] LABS: Creatinine Urine 215.2 mg/dL
[2020-12-31 10:01] LABS: Appearance Pleural Fluid Bloody (Clear); Color Pleural Fluid Red (Colorless); Nucleated Cell Pleural Fluid 479 /uL (0-1000); Pleural fluid source Pleural fluid; RBC Pleural Fluid 30264 /uL (0-0)
[2020-12-31 10:02] LABS: Lymphocytes Pleural Fluid 8 %; Macrophages Pleural Fluid 65 %; Mesothelial Cells Pleural Flui 19 %; Monocytes Pleural Fluid 7 %; Neutrophils Pleural Fluid 1 % (0-25)
[2020-12-31 10:13] LABS: Sodium Urine Random 5 meq/L
[2020-12-31 11:12] LABS: Glucose Point of Care 222 mg/dl (65-105)
--- NOTE | 2020-12-31 11:25 | PM.IMPN ---
Progress Note: A&P Assessment and Plan (1) Anemia: Code(s): D64.9 - Anemia, unspecified Status: Acute Assessment and Plan: Monitor hemoglobin (2) Hypokalemia: Code(s): E87.6 - Hypokalemia Status: Acute Assessment and Plan: Replace potassium Monitor electrolytes (3) Hypoxia: Code(s): R09.02 - Hypoxemia Status: Acute Assessment and Plan: Home O2 assessment Treat pleural effusion (4) Cirrhosis: Code(s): K74.60 - Unspecified cirrhosis of liver Status: Acute Assessment and Plan: Plan to discuss the case with the hepatology team at [facility], transfer to [facility] when bed is available. (5) Abdominal ascites: Qualifiers: Ascites type: other type Qualified Code(s): R18.8 - Other ascites Code(s): R18.8 - Other ascites Status: Acute Assessment and Plan: paracentesis 12/28 Consult GI Follow up with [facility] hepatology (6) Pleural effusion: Code(s): J90 - Pleural effusion, not elsewhere classified Status: Acute Assessment and Plan: Thoracentesis, pH 7.42, otherwisecell count, cultures, LDH results not available Discussed with Dr. Devine pulmonary (7) Weakness: Code(s): R53.1 - Weakness Status: Acute Assessment and Plan: Manage acute on chronic liver failure, possible infections, obtain PT OT when patient more stable Subjective Date/time seen: 12/31/20 11:25 Interval history: patient still on BiPAP in the intensive care unit mild confusion able to follow simple commands case was discussed with the mine wedge sawyer I called the access line at [facility], ICU team accepted the transfer when bed is available Dr. Mcdonald accepted the transfer under Dr. Gordon. I updated patient's Exam Const: General: in distress Neck: Neck: no JVD Resp: Other: course of breath sounds Cardio: Rate: regular rate GI: GI Palp: Yes Soft to palpation Skin: General skin exam: normal color Neuro: Other: generalized weakness Objective Data Vital Signs Vital Signs: Vital Signs - 24 hr 12/30/20 12:00 12/30/20 13:28 12/30/20 13:44 Temperature Pulse Rate 79 65 Respiratory Rate 22 H Blood Pressure 129/46 L Pulse Oximetry 96 95 12/30/20 14:00 12/30/20 14:35 12/30/20 16:00 Temperature 96.7 F L Pulse Rate 66 66 67 Respiratory Rate 24 H 26 H 24 H Blood Pressure 108/40 L 124/56 L Pulse Oximetry 100 100 100 12/30/20 17:25 12/30/20 17:55 12/30/20 19:58 Temperature 97.6 F Pulse Rate 65 68 Respiratory Rate 29 H 26 H Blood Pressure 122/51 L Pulse Oximetry 97 100 12/30/20 20:00 12/30/20 21:45 12/30/20 22:00 Temperature Pulse Rate 65 66 66 Respiratory Rate 24 H 24 H 20 Blood Pressure 123/55 L 122/58 L Pulse Oximetry 97 100 100 12/30/20 23:43 12/30/20 23:54 12/31/20 00:00 Temperature 97.0 F L Pulse Rate 65 64 Respiratory Rate 29 H 24 H Blood Pressure 134/54 L Pulse Oximetry 98 98 98 12/31/20 02:00 12/31/20 03:15 12/31/20 03:22 Temperature 97.8 F Pulse Rate 65 64 Respiratory Rate 25 H 25 H Blood Pressure 144/58 H Pulse Oximetry 97 97 12/31/20 04:00 12/31/20 06:00 12/31/20 08:00 Temperature 96.8 F L Pulse Rate 65 63 64 Respiratory Rate 24 H 22 H 24 H Blood Pressure 145/58 H 132/54 L 134/53 L Pulse Oximetry 97 98 100 12/31/20 08:36 12/31/20 09:28 12/31/20 10:00 Temperature Pulse Rate 62 62 Respiratory Rate 28 H Blood Pressure 128/44 L Pulse Oximetry 96 100 Intake/Output Intake/Output: Intake & Output 12/28/20 12/29/20 12/30/20 12/31/20 23:59 23:59 23:59 23:59 Intake Total 491 1130 1460 250 Output Total 7000 1600 1150 125 Balance -1259 -470 310 125 Meds/Results Medications: Active Medications Generic Name Dose Route Start Last Admin Trade Name Freq PRN Reason Stop Dose Adm
[2020-12-31] MEDS: INSULIN ASPART (*BKC) 100 UNITS/ML SUB-Q (12:19)
[2020-12-31] MEDS: levoFLOXacin 250 MG/D5W 50 ML 250 MG/50 ML BAG 50 MG IVPB (12:31)
[2020-12-31 13:49] LABS: SARS-CoV-2 RNA PCR Negative
--- NOTE | 2020-12-31 14:15 | P.CONNP_ITS ---
Assessment and Plan Assessment and plan (1) MISHA (acute kidney injury): Code(s): N17.9 - Acute kidney failure, unspecified Status: Acute Assessment and Plan: * possibly due to diuretic therapy in the context of acute infection (pneumonia?) * her underlying liver disease makes her more susceptible to fluid shifts as well... - possible intravascular volume depletion despite evidence of volume overload * urine electrolytes consistent with pre-renal azotemia * renal ultrasound negative for obstruction * urine eosinophils negative * follow trend of repeat labs and UOP (2) Acute on chronic respiratory failure with hypoxia and hypercapnia: Code(s): J96.21 - Acute and chronic respiratory failure with hypoxia; J96.22 - Acute and chronic respiratory failure with hypercapnia Status: Acute Assessment and Plan: * Critical Care and Pulmonology following * BIPAP therapy * follow respiratory status closely * remains at risk for intubation if unable to protect airway (3) Encephalopathy: Code(s): G93.40 - Encephalopathy, unspecified Status: Acute Assessment and Plan: * secondary to hypercapnia, hypoxia, and elevated ammonia levels due to cirrhosis * continue current management * follow mentation (4) Cirrhosis of liver with ascites: Code(s): K74.60 - Unspecified cirrhosis of liver; R18.8 - Other ascites Status: Chronic Assessment and Plan: * long standing issue/problems * follows with [facility] Hepatology (5) Pleural effusion: Code(s): J90 - Pleural effusion, not elsewhere classified Status: Acute Assessment and Plan: * persistent and with re-development even after 1L thoracentesis * contributing to #2 as well * pleurx catheter placement an option(?) (6) Anemia: Code(s): D64.9 - Anemia, unspecified Status: Acute Assessment and Plan: * related to MISHA, acute illness, and liver disease * follow trend of H/H (7) Diabetes: Code(s): E11.9 - Type 2 diabetes mellitus without complications Status: Acute Assessment and Plan: * follow accuchecks * glycemic control Noted plans for possible transfer to [facility] given her liver physicians are based there. Will continue to follow. History of Present Illness Reason for Consult Consult date: 12/31/20 Reason for consult: acute renal failure Chief Complaint Chief complaint: Ascites, pleural effusion History of Present Illness Narrative: All the information I have obtained is from review of the electronic medical record as well as discussion with the nurses and physicians involved in this patient's care as getting a full and complete history from the patient is somewhat difficult due to her confusion. The patient is a 75 year old Caucacian female with a past medical history as outlined below who presented to [facility] Emergency room with complaints of shortness of breath. Apparently, approximately 3-4 days prior to admission, the patient had developed shortness of breath and associated severe/ marked weakness to the point where she was unable to even walk a few feet without getting more short of breath / winded. She gave no history of chest pain fevers or chills but she did noted that her abdomen was more distended than usual. Evaluation in the emergency room demonstrated the patient to have lung infiltrates as well as a moderate left-sided pleural effusion by imaging studies and significant distension consistent with ascites likely secondary to her underlying michelle
--- NOTE | 2020-12-31 14:15 | PM.CNNEP ---
Assessment and Plan Assessment and plan (1) MISHA (acute kidney injury): Code(s): N17.9 - Acute kidney failure, unspecified Status: Acute Assessment and Plan: possibly due to diuretic therapy in the context of acute infection (pneumonia?) her underlying liver disease makes her more susceptible to fluid shifts as well... - possible intravascular volume depletion despite evidence of volume overload urine electrolytes consistent with pre-renal azotemia renal ultrasound negative for obstruction urine eosinophils negative follow trend of repeat labs and UOP (2) Acute on chronic respiratory failure with hypoxia and hypercapnia: Code(s): J96.21 - Acute and chronic respiratory failure with hypoxia; J96.22 - Acute and chronic respiratory failure with hypercapnia Status: Acute Assessment and Plan: Critical Care and Pulmonology following BIPAP therapy follow respiratory status closely remains at risk for intubation if unable to protect airway (3) Encephalopathy: Code(s): G93.40 - Encephalopathy, unspecified Status: Acute Assessment and Plan: secondary to hypercapnia, hypoxia, and elevated ammonia levels due to cirrhosis continue current management follow mentation (4) Cirrhosis of liver with ascites: Code(s): K74.60 - Unspecified cirrhosis of liver; R18.8 - Other ascites Status: Chronic Assessment and Plan: long standing issue/problems follows with [facility] Hepatology (5) Pleural effusion: Code(s): J90 - Pleural effusion, not elsewhere classified Status: Acute Assessment and Plan: persistent and with re-development even after 1L thoracentesis contributing to #2 as well pleurx catheter placement an option(?) (6) Anemia: Code(s): D64.9 - Anemia, unspecified Status: Acute Assessment and Plan: related to MISHA, acute illness, and liver disease follow trend of H/H (7) Diabetes: Code(s): E11.9 - Type 2 diabetes mellitus without complications Status: Acute Assessment and Plan: follow accuchecks glycemic control Noted plans for possible transfer to [facility] given her liver physicians are based there. Will continue to follow. History of Present Illness Reason for Consult Consult date: 12/31/20 Reason for consult: acute renal failure Chief Complaint Chief complaint: Ascites, pleural effusion History of Present Illness Narrative: All the information I have obtained is from review of the electronic medical record as well as discussion with the nurses and physicians involved in this patient's care as getting a full and complete history from the patient is somewhat difficult due to her confusion. The patient is a 75 year old Caucacian female with a past medical history as outlined below who presented to [facility] Emergency room with complaints of shortness of breath. Apparently, approximately 3-4 days prior to admission, the patient had developed shortness of breath and associated severe/ marked weakness to the point where she was unable to even walk a few feet without getting more short of breath / winded. She gave no history of chest pain fevers or chills but she did noted that her abdomen was more distended than usual. Evaluation in the emergency room demonstrated the patient to have lung infiltrates as well as a moderate left-sided pleural effusion by imaging studies and significant distension consistent with ascites likely secondary to her underlying liver disease. She was subsequent admitted to the hospital for further evaluation and therapy. Since her admission she has undergone both a thoracentesis so as well as a large volume paracentesis with some improvement in her respiratory status. However, she continues to required oxygen during this hospital stay. in the last 24 hours, the patient's mentation has deteriorated. She became more and more lethargic i
[2020-12-31 17:21] LABS: Glucose Point of Care 200 mg/dl (65-105)
[2020-12-31] MEDS: nadoloL 20 MG TABLET PO (19:55)
[2020-12-31] MEDS: busPIRone HCL 5 MG TABLET 15 MG PO (19:55)
--- NOTE | 2021-01-01 07:29 | PM.TDS ---
Transfer Discharge Sum: Prov Provider Date of admission: 12/28/20 01:37 Primary care physician: Laila Cox, [employer] PAYABLE SPECIALIST Admitting clinician: Arnold Ortez MD Consults: 12/28/20 Consult to Physician Routine Comment: left message with Dr Melara [id number] /[facility] Consulting Provider: Humberto Melara diesel fitter mechanic/ group to consult: consult GI construction checker Reason for consultation: cirrhosis and ascites Has provider been notified: Yes 12/30/20 Consult to Physician Routine Comment: Consulting Provider: Thanh Robles diesel fitter mechanic/MD group to consult: Pulmonary- Dr. Avendano Reason for consultation: O2- critical ABG,s-pt on Bipap, Respiratory Failure Has provider been notified: Yes Consult to Physician Routine Comment: Consulting Provider: Brett Mohamud diesel fitter mechanic/ group to consult: Consult to the utility mechanic, Reason for consultation: Respiratory failure, altered mental status Has provider been notified: Yes 12/31/20 07:39 Consult to Physician Routine Comment: Consulting Provider: Soo Perales diesel fitter mechanic/MD group to consult: NEPHROLOGY Reason for consultation: Acute kidney injury Has provider been notified: No DS: Admitting Diagnosis Admitting Diagnosis Admitting Diagnosis: Cirrhosis ascites pleural effusion DS: Discharge Diagnosis Discharge Diagnosis (1) Cirrhosis of liver with ascites: Code(s): K74.60 - Unspecified cirrhosis of liver; R18.8 - Other ascites Status: Acute (2) Acute on chronic respiratory failure with hypoxia and hypercapnia: Code(s): J96.21 - Acute and chronic respiratory failure with hypoxia; J96.22 - Acute and chronic respiratory failure with hypercapnia Status: Acute (3) Pleural effusion: Code(s): J90 - Pleural effusion, not elsewhere classified Status: Acute (4) Abdominal ascites: Qualifiers: Ascites type: other type Qualified Code(s): R18.8 - Other ascites Code(s): R18.8 - Other ascites Status: Acute Transfer Discharge Sum: Med Medications Active and Home Medications: Home Medications buspirone 15 mg PO Q12H 12/28/20 [History Confirmed 12/28/20] ergocalciferol (vitamin D2) 1,250 mcg PO WEEKLY 12/28/20 [History Confirmed 12/28/20] ferrous sulfate, dried 160 mg PO DAILY 12/28/20 [History Confirmed 12/28/20] furosemide 20 mg PO DAILY 12/28/20 [History Confirmed 12/28/20] insulin degludec [Tresiba FlexTouch U-200] 35 unit SUBCUT HS 12/28/20 [History Confirmed 12/28/20] nadolol 20 mg PO HS 12/28/20 [History Confirmed 12/28/20] rifaximin [Xifaxan] 550 mg PO Q12H 12/28/20 [History Confirmed 12/28/20] sertraline 100 mg PO DAILY 12/28/20 [History Confirmed 12/28/20] spironolactone 50 mg PO DAILY 12/28/20 [History Confirmed 12/28/20] Transfer Discharge Sum: Hosp Hospital Course Hospital course: Shweta Russell is a 75 year old female with history of cirrhosis, presented was abdominal distension and shortness of breath, patient was found to have ascites and pleural effusion, that was drained by interventional radiology, unfortunately also multiple tests were ordered on the peritoneal and pleural fluid, but we did not have the results of these tests during this hospitalization, patient was empirically treated with antibiotic and albumin, the only result that we had was the pH of the pleural effusion of 7.42. in December 30, 2020 patient to duration deteriorated, and she had respiratory distress and hypoxia, that required BiPAP support, then patient was transferred to the intensive care unit, her antibiotic coverage for increased, pulmonary and utility mechanic were consulted, although during this hospitalization GI and Nephrology were consulted. since patient follow up with the hepatology clinic at [facility] and we do not have hepatology service at our hospital, patient was transferred to [facility] intensive care unit, for further evaluation and management. lamine
[2021-01-01 11:59] LABS: LDH Pleural Fluid 46 U/L
[2021-01-03 20:45] LABS: Glucose Pleural Fluid 101 mg/dL; Total Protein Pleural Fluid <3.0 g/dL
[2021-01-04 14:02] LABS: Amylase, Pleural Fluid <10 U/L
[2021-01-06 11:30] LABS: Chloride Rand Ur <20 mmol/L (32-290); Creatinine Random Urine 187 mg/dL (20-275)
[2021-01-07 22:58] LABS: Albumin Pleural Fluid 0.9 g/dL
== END 2021-01-01 00:19 | disposition short-term general hospital (02) | DRG 432 ==
LOC: ANHED 12-28 01:28 → ANH3MEDSUR 12-28 02:07 → ANHIMU 12-30 02:07 → ANHICU 12-30 10:15
PROVIDERS: Internal Medicine; Internal Medicine Gastroenterology; Internal Medicine Pulmonary Disease; Physician Assistant; Admitting Provider Internal Medicine; Emergency Provider Family Medicine; PCP Nurse Practitioner Adult Health; Visit Provider Emergency Medicine
DX: K74.60 Unspecified cirrhosis of liver (principal); J96.21 Acute and chronic respiratory failure with hypoxia; J96.22 Acute and chronic respiratory failure with hypercapnia; R18.8 Other ascites; K76.6 Portal hypertension; J91.8 Pleural effusion in other conditions classified elsewhere; G93.40 Encephalopathy, unspecified; N17.9 Acute kidney failure, unspecified; Z20.822 Contact with and (suspected) exposure to COVID-19; I50.9 Heart failure, unspecified; R53.1 Weakness; E11.9 Type 2 diabetes mellitus without complications; E87.6 Hypokalemia; D69.6 Thrombocytopenia, unspecified; D64.9 Anemia, unspecified; Z79.4 Long term (current) use of insulin; Z79.899 Other long term (current) drug therapy; Z85.3 Personal history of malignant neoplasm of breast; Z86.74 Personal history of sudden cardiac arrest
CPT/HCPCS: 32555; 36415; 36600; 49083; 70450; 71045; 71046; 71250; 74176; 76775; 80048; 80053; 82042; 82140; 82150; 82375; 82436; 82570; 82805; 82945; 82948; 83036; 83050; 83605; 83615; 83735; 83880; 83986; 84100; 84133; 84155; 84157; 84300; 85014; 85018; 85025; 85027; 85055; 85610; 85730; 85999; 86140; 87015; 87040; 87070; 87075; 87102; 87107; 87116; 87205; 87206; 88104; 88108; 88184; 88305; 89051; 93005; 94002; 94003; 97161; 97166; 99285; A9270; C9803; J0696; J1100; J1815; J1940; J1956; J2270; J3370; J3430; J3475; J3480; J7060; P9047; U0003; U0005